=== PATIENT | female | born 1950 | race Caucasian/White ===

== ENCOUNTER 2017-11-20 10:44 | Inpatient (IN) | payer MEDICARE, OTHER ==
[2017-11-20] MEDS ORDERED: ASPIRIN 81 MG TABLET, CHEWABLE PO ONE (10:55)
[2017-11-20] MEDS ORDERED: NORMAL SALINE 1000 ML 1,000 ML IV ONE (10:58)
[2017-11-20] MEDS ORDERED: ONDANSETRON HCL INJ/PF 4 MG/2 ML SDV IV ONE (10:59)
--- NOTE | 2017-11-20 11:05 | ER Document Report ---
ED Medical Screen (RME) - General Chief Complaint: Syncope Stated Complaint: NASUEA Time Seen by Provider: 11/20/17 10:54 TRAVEL OUTSIDE OF THE [place] IN LAST 30 DAYS: No - HPI Notes: 11/20/17 11:03 Patient visiting from [place] has been no color for approximately 2 weeks feeling nauseous since she has been here. Patient patient has syncopal episode or brushing her teeth today. In triage patient was asking to lay down blood pressure is marginal. Patient does look pale - Related Data Allergies/Adverse Reactions: diphenhydramine [From Benadryl] Allergy (Verified 11/20/17 10:46) Past Medical History - Social History Chew tobacco use (# tins/day): No Frequency of alcohol use: None Drug Abuse: None - Past Medical History Cardiac Medical History: Reports: Hx Hypercholesterolemia Renal/ Medical History: Denies: Hx Peritoneal Dialysis Review of Systems - Review of Systems Constitutional: No symptoms reported EENT: No symptoms reported Cardiovascular: Syncope, Other - Nausea Respiratory: No symptoms reported Gastrointestinal: No symptoms reported Genitourinary: No symptoms reported Female Genitourinary: No symptoms reported Musculoskeletal: Back pain Skin: No symptoms reported Hematologic/Lymphatic: No symptoms reported Neurological/Psychological: No symptoms reported Physical Exam - Vital signs Vitals: Temp Pulse Resp BP Pulse Ox 97.9 F 87 24 H 102/52 L 100 11/20/17 10:50 11/20/17 10:50 11/20/17 10:50 11/20/17 10:50 11/20/17 10:50 - Respiratory Respiratory status: No respiratory distress Chest status: Nontender Breath sounds: Normal Chest palpation: Normal Course - Vital Signs Vital signs: Temp Pulse Resp BP Pulse Ox 97.9 F 87 24 H 102/52 L 100 11/20/17 10:50 11/20/17 10:50 11/20/17 10:50 11/20/17 10:50 11/20/17 10:50
--- NOTE | 2017-11-20 11:31 | ER Document Report ---
ED Syncope and Near Syncope - General Chief Complaint: Syncope Stated Complaint: NASUEA Time Seen by Provider: 11/20/17 10:54 Mode of Arrival: Ambulatory Information source: Patient, Relative TRAVEL OUTSIDE OF THE [place] IN LAST 30 DAYS: No - HPI Patient complains to provider of: Fainting Episode witnessed (by whom): Yes Symptoms prior to episode: Abdominal pain, Nausea/vomiting Position/Activity at time of episode: Standing Quality of pain: Achy, Cramping Severity: Moderate Pain Level: 3 Context: Became unresponsive, Collapsed Injury location: None Current symptoms: Dizziness, Headache, Nausea Similar symptoms previously: No Recently seen / treated by doctor: No Notes: Patient is a 67-year-old female presenting to the emergency room today complaining of syncopal episode, patient has been having episodes of nausea over the past week, this morning she did not feel well, she went to the bathroom and her daughter who is at bedside reports she heard a crash, she went into the bathroom and found patient lying on the floor unresponsive, with her head scrunched up against the wall, she did not appear to be having any seizure activity, this episode lasted less than a minute and then patient was awake and alert, she had immediate vomiting and diarrhea which was without blood, patient denies any chest pain or shortness of breath prior to or after the syncopal episode, her only complaint at the present time is a mild headache and nausea been experiencing over the past week, no history of syncope in the past, patient takes cholesterol medication, denies being a smoker - Related Data Allergies/Adverse Reactions: diphenhydramine [From Benadryl] Allergy (Verified 11/20/17 10:46) Past Medical History - General Information source: Patient - Social History Smoking Status: Never Smoker Chew tobacco use (# tins/day): No Frequency of alcohol use: None Drug Abuse: None Family History: Reviewed & Not Pertinent Patient has suicidal ideation: No Patient has homicidal ideation: No - Past Medical History Cardiac Medical History: Reports: Hx Hypercholesterolemia Renal/ Medical History: Denies: Hx Peritoneal Dialysis Review of Systems - Review of Systems Constitutional: See HPI EENT: No symptoms reported Cardiovascular: Syncope, Dizziness Respiratory: No symptoms reported Gastrointestinal: See HPI Genitourinary: No symptoms reported Female Genitourinary: No symptoms reported Musculoskeletal: No symptoms reported Skin: No symptoms reported Hematologic/Lymphatic: No symptoms reported Neurological/Psychological: Headaches -: Yes All other systems reviewed and negative Physical Exam - Vital signs Vitals: Temp Pulse Resp BP Pulse Ox 97.9 F 87 24 H 102/52 L 100 11/20/17 10:50 11/20/17 10:50 11/20/17 10:50 11/20/17 10:50 11/20/17 10:50 Interpretation: Normal - General General appearance: Appears well, Alert - HEENT Head: Normocephalic, Atraumatic Eyes: Normal Pupils: PERRL - Respiratory Respiratory status: No respiratory distress Chest status: Nontender Breath sounds: Normal Chest palpation: Normal - Cardiovascular Rhythm: Regular Heart sounds: Normal auscultation Murmur: No - Abdominal Inspection: Normal Distension: No distension Bowel sounds: Normal Tenderness: Nontender Organomegaly: No organomegaly - Back Back: Normal, Nontender - Extremities General upper extremity: Normal inspection, Nontender, Normal color, Normal ROM , Normal temperature General lower extremity: Normal inspection, Nontender, Normal color, Normal ROM , Normal temperature, Normal weight bearing. No: Tiff's sign - Neurological Neuro grossly intact: Yes Cognition: Normal Orientation: AAOx4 [place] Coma Scale Eye Opening: Spontaneous [place] Coma Scale Verbal: Oriented Annamarie Coma Scale Motor: Obeys Commands [place] Coma Scale Total: 15 Speech: Normal Motor strength normal: LUE, RUE, LLE, RLE Sensory: Normal - Psychological Associated symptoms: Normal affect, Normal mood - Skin Skin Temperature: Warm Skin Moisture: Dry Skin Color: Pale Course - Re-evaluation Re-evalutation: 11/20/17 14:09 Patient discussed with hospitalist [employer] who accepts patient for admission to the [facility] - Vital Signs Vital signs: Temp Pulse Resp BP Pulse Ox 97.9 F 87 24 H 102/52 L 95 11/20/17 10:50 11/20/17 10:50 11/20/17 10:50 11/20/17 10:50 11/20/17 11:16 - Laboratory Result Diagrams: 11/20/17 11:16 11/20/17 11:16 Laboratory results interpreted by me: 11/20/17 11/20/17 11/20/17 11:16 11:16 11:16 WBC 18.1 H RBC 2.26 L Hgb 5.9 L Hct 17.2 L MCV 76 L MCH 26.1 L RDW 17.5 H Absolute Neutrophils 12.6 H Absolute Monocytes 1.9 H PT 16.1 H Glucose 162 H Total Bilirubin 1.8 H Direct Bilirubin 0.6 H AST 43 H Total Protein 10.9 H Albumin 3.3 L Crossmatch 11/20/17 11:16 WBC RBC Hgb Hct MCV MCH RDW Absolute Neutrophils Absolute Monocytes PT Glucose Total Bilirubin Direct Bilirubin AST Total Protein Albumin Crossmatch See Detail - Diagnostic Test Radiology reviewed: Image reviewed, Reports reviewed - EKG Interpretation by Me EKG shows normal: Sinus rhythm Rate: Normal Rhythm: NSR Discharge - Discharge Clinical Impression: Symptomatic anemia Syncope Qualifiers: Syncope type: unspecified Qualified Code(s): R55 - Syncope and collapse Condition: Serious Disposition: ADMITTED INPATIENT Admitting Provider: Hospitalist Unit Admitted: [facility]
[2017-11-20] MEDS ORDERED: ONDANSETRON HCL INJ/PF 4 MG/2 ML SDV ONE (11:33)
[2017-11-20 11:41] LABS: ABSOLUTE BASOPHILS # (AUTO) 0.1 10^3/uL (0.0-0.2); ABSOLUTE EOSINOPHILS # (AUTO) 0.1 10^3/uL (0.0-0.6); ABSOLUTE LYMPHOCYTES (AUTO) 3.3 10^3/uL (0.5-4.7); ABSOLUTE MONOCYTES (AUTO) 1.9 10^3/uL (0.1-1.4); ABSOLUTE NEUT (AUTO) 12.6 10^3/uL (1.7-8.2); BASOPHILS % (AUTO) 0.7 % (0-2); EOSINOPHILS % (AUTO) 0.5 % (0-6); HEMATOCRIT 17.2 % (36.0-47.0); LYMPHOCYTES % (AUTO) 18.3 % (13-45); MEAN CORPUSCULAR HEMOGLOBIN 26.1 pg (27.0-33.4); MEAN CORPUSCULAR HGB CONC 34.3 g/dL (32.0-36.0); MEAN CORPUSCULAR VOLUME 76 fl (80-97); MONOCYTES % (AUTO) 10.8 % (3-13); PLATELET COUNT 207 10^3/uL (150-450); RED BLOOD COUNT 2.26 10^6/uL (3.72-5.28); RED CELL DISTRIBUTION WIDTH 17.5 % (11.5-14.0); SEGMENTED NEUTROPHILS % (AUTO) 69.7 % (42-78); TOTAL CELLS COUNTED % (AUTO) 100 %; WHITE BLOOD COUNT 18.1 10^3/uL (4.0-10.5)
[2017-11-20 11:46] LABS: HEMOGLOBIN 5.9 g/dL (12.0-15.5)
[2017-11-20 11:48] LABS: INTERNATIONAL RATION (INR) 1.23; PROTHROMBIN TIME 16.1 SEC (11.4-15.4)
[2017-11-20 12:03] LABS: ALANINE AMINOTRANSFERASE 31 U/L (9-52); ALBUMIN 3.3 g/dL (3.5-5.0); ALKALINE PHOSPHATASE 120 U/L (38-126); ANION GAP 11 (5-19); ASPARTATE AMINO TRANSFERASE 43 U/L (14-36); BILIRUBIN,DIRECT 0.6 mg/dL (0.0-0.4); BILIRUBIN,TOTAL 1.8 mg/dL (0.2-1.3); BLOOD UREA NITROGEN 12 mg/dL (7-20); CALCIUM 8.7 mg/dL (8.4-10.2); CARBON DIOXIDE 27 mmol/L (22-30); CHLORIDE 101 mmol/L (98-107); CREATINE KINASE 43 U/L (30-135); GLUCOSE 162 mg/dL (75-110); LIPASE 91.1 U/L (23-300); POTASSIUM 3.9 mmol/L (3.6-5.0); SODIUM 139.1 mmol/L (137-145); TOTAL PROTEIN 10.9 g/dL (6.3-8.2)
[2017-11-20] MEDS ORDERED: NORMAL SALINE 250 ML IV PRN (12:04)
--- NOTE | 2017-11-20 12:14 | RADIOLOGY REPORT (SQ) ---
EXAM DESCRIPTION: CHEST SINGLE VIEW COMPLETED DATE/TIME: 11/20/2017 11:57 am REASON FOR STUDY: syncope COMPARISON: None. EXAM PARAMETERS: NUMBER OF VIEWS: One view. TECHNIQUE: Single frontal radiographic view of the chest acquired. RADIATION DOSE: NA LIMITATIONS: None. FINDINGS: LUNGS AND PLEURA: No opacities, masses or pneumothorax. No pleural effusion. MEDIASTINUM AND HILAR STRUCTURES: No masses. Contour normal. HEART AND VASCULAR STRUCTURES: Heart normal in size. Normal vasculature. BONES: No acute findings. HARDWARE: None in the chest. OTHER: No other significant finding. IMPRESSION: NO ACUTE RADIOGRAPHIC FINDING IN THE CHEST. TECHNICAL DOCUMENTATION: JOB ID: [id number] [employer]- All Rights Reserved Reading location - IP/workstation name: [facility] [email or web address] BEDS AT THE [facility]
[2017-11-20 12:15] LABS: CREATINE KINASE MB < 0.22 ng/mL (<4.55); TROPONIN I < 0.012 ng/mL
--- NOTE | 2017-11-20 12:26 | RADIOLOGY REPORT (SQ) ---
EXAM DESCRIPTION: CT HEAD WITHOUT COMPLETED DATE/TIME: 11/20/2017 11:53 am REASON FOR STUDY: syncope COMPARISON: None. TECHNIQUE: Axial images acquired through the brain without intravenous contrast. Images reviewed wi th bone, brain and subdural windows. Additional sagittal and coronal reconstructions were generated. Images stored on PACS. All CT scanners at this facility use dose modulation, iterative reconstruction, and/or weight based d osing when appropriate to reduce radiation dose to as low as reasonably achievable (ALARA). [facility]: Dose Right [facility]: CareDose [facility]: Dose Right [facility]: Teradose 4D [facility]: Cloud9 IDE RADIATION DOSE: mGy. LIMITATIONS: None. FINDINGS: VENTRICLES: Normal size and contour. CEREBRUM: No masses. No hemorrhage. No midline shift. No evidence for acute infarction. Normal gra y/white matter differentiation. No areas of low density in the white matter. CEREBELLUM: No masses. No hemorrhage. No alteration of density. No evidence for acute infarction. EXTRAAXIAL SPACES: No fluid collections. No masses. ORBITS AND GLOBE: No intra- or extraconal masses. Normal contour of globe without masses. CALVARIUM: No fracture. PARANASAL SINUSES: No fluid or mucosal thickening. SOFT TISSUES: No mass or hematoma. OTHER: No other significant finding. IMPRESSION: NORMAL BRAIN CT WITHOUT CONTRAST. EVIDENCE OF ACUTE STROKE: NO. COMMENT: Quality ID # 436: Final reports with documentation of one or more dose reduction techniques (e.g., Automated exposure control, adjustment of the mA and/or kV according to patient size, use of iterative reconstruction technique) TECHNICAL DOCUMENTATION: JOB ID: [id number] [employer]- All Rights Reserved Reading location - IP/workstation name: [email or web address]
--- NOTE | 2017-11-20 13:48 | RADIOLOGY REPORT (SQ) ---
EXAM DESCRIPTION: CT ABD/PELVIS WITH IV ONLY COMPLETED DATE/TIME: 11/20/2017 1:29 pm REASON FOR STUDY: abd pain COMPARISON: None. TECHNIQUE: CT scan of the abdomen and pelvis performed using helical scanning technique with dynamic intravenous contrast injection. No oral contrast. Images reviewed with lung, soft tissue, and bone windows. Reconstructed coronal and sagittal MPR images reviewed. Delayed images for evaluation of the urinary system also acquired. All images stored on PACS. All CT scanners at this facility use dose modulation, iterative reconstruction, and/or weight based d osing when appropriate to reduce radiation dose to as low as reasonably achievable (ALARA). [facility]: Dose Right [facility]: CareDose [facility]: Dose Right [facility]: Teradose 4D [facility]: BioLight [employer] CONTRAST TYPE AND DOSE: 11.15 64 mL Omnipaque 350 RENAL FUNCTION: Creatinine 0.59 RADIATION DOSE: . LIMITATIONS: None. FINDINGS: LOWER CHEST: No significant findings. No nodules or infiltrates. Linear density is identi fied in the lung bases most consistent with atelectatic changes. LIVER: Normal size. No masses. No dilated ducts. SPLEEN: Normal size. No focal lesions. PANCREAS: No masses. No significant calcifications. No adjacent inflammation or peripancreatic fluid collections. Pancreatic duct not dilated. GALLBLADDER: There is increased density which appears to be in the gallbladder neck which could repre sent biliary sludge or tiny gallstones. No inflammatory changes to suggest cholecystitis. ADRENAL GLANDS: No significant masses or asymmetry. RIGHT KIDNEY AND URETER: No solid masses. No significant calcifications. No hydronephrosis or hyd roureter. LEFT KIDNEY AND URETER: No solid masses. No significant calcifications. No hydronephrosis or hydr oureter. AORTA AND VESSELS: No aneurysm. No dissection. Renal arteries, SMA, celiac without stenosis. RETROPERITONEUM: No retroperitoneal adenopathy, hemorrhage or masses. BOWEL AND PERITONEAL CAVITY: No masses or inflammatory changes. No free fluid or peritoneal masses. Scattered colonic diverticulae a are identified in the sigmoid and DC Ing colon without CT evidence f or diverticulitis P APPENDIX: Normal. PELVIS: No mass. No free fluid. Normal bladder. There is enlargement of the uterus with uterine sarai cifications consistent with a fibroid uterus. ABDOMINAL WALL: No masses. No hernias. BONES: No significant or acute findings. OTHER: No other significant finding. IMPRESSION: Increased density in the gallbladder neck which could represent biliary sludge or tiny g allstones. Enlarged fibroid uterus. Multiple colonic diverticula are identified without CT evidence for diverticulitis. Other findings as noted above TECHNICAL DOCUMENTATION: JOB ID: [id number] Quality ID # [id number]: Final reports with documentation of one or more dose reduction techniques (e.g., Au tomated exposure control, adjustment of the mA and/or kV according to patient size, use of iterative reconstruction technique) 2010 [employer]- All Rights Reserved Reading location - IP/workstation name: [email or web address]
[2017-11-20 14:58] LABS: RETICULOCYTE COUNT (AUTO) 6.73 % (0.66-2.85)
[2017-11-20 15:18] LABS: IRON(TIBC) 52.5 ug/dL (37-170)
--- NOTE | 2017-11-20 16:40 | PDOC H&P ---
<SONIA HDEZ Ambrocio - Last Filed: 11/20/17 16:27> History of Present Illness Admission Date/PCP: 11/20/17 14:27 Patient complains of: SYNCOPE. WEAKNESS History of Present Illness: AURORA OROZCO is a 67 year old female who presented to the emergency department following an unwitnessed syncopal episode at home. PMH includes HLD , chronic back pain and sinusitis. The patient experienced a syncopal episode this morning at approximately 10:15 AM. Daughter was in the next room and heard a crash, walked into the bathroom to find patient laying unconscious on the ground. No seizure-like activity. According to daughter, patient was unconscious for approximately 1 minute. When the patient came to, she immediately vomited and experienced 2 episodes of loose stool shortly thereafter. The patient is amnesic to the event, states she was brushing her teeth and 'the next thing I knew, I woke up on the floor with my daughter standing over me.' This episode prompted the daughter to call EMS, and patient was transported to [facility]. Upon arrival to the ED, vital signs were BP 102/52 HR 87 RR 24 T 97.9 SPO2 100% on RA. The patient was awake, alert and oriented 3. Head CT negative. CXR benign. EKG demonstrates NSR, T-wave inversion in V1, no evidence of acute ischemia or infarction. Significant lab work includes leukocytosis (WBC 18.1), anemia (Hgb 5.9/Hct 17.2). Guiac negative (-). All other lab work, including cardiac enzymes, was benign. CT Abd/pelvis demonstrates biliary sludge versus tiny gallstones, enlarged fibroid uterus, multiple colonic diverticula, no other pathology. For her anemia, the patient was transfused 2 units PRBCs. She also received 1L IVF bolus. Upon evaluation, the patient complains of mild nausea and extreme fatigue and weakness. The patient states she has been experiencing these symptoms of fatigue for 'months.' Occupation is retired RN. Denies smoking, ETOH, or illicit drug use. Patient states she is been undergoing a comprehensive workup by her primary care doctor (Dr. Will Mcgee in [place], [place]) but all tests have been normal. In addition to her fatigue, the patient is complaining of lower back pain, which she states is a chronic problem for her. The patient appears very pale, her oral mucosa and sclera are pale. Palpable pulses in upper and lower extremities. No evidence of peripheral edema. S1S1. (+) JVD. Lungs are clear to auscultation. (+) BS. Abdomen is soft, nontender, nondistended. Plan to admit to hospitalist service for syncope and anemia workup. Past Medical History Cardiac Medical History: Reports: Hyperlipidema Pulmonary Medical History: Reports: None EENT Medical History: Reports: None Neurological Medical History: Reports: None Endocrine Medical History: Reports: None Renal/ Medical History: Reports: None Malignancy Medical History: Reports: None GI Medical History: Reports: None Musculoskeltal Medical History: Reports: Other - CHRONIC BACK PAIN Skin Medical History: Reports: None Psychiatric Medical History: Reports: None Traumatic Medical History: Reports: None Hematology: Reports: None Infectious Medical History: Reports: None Past Surgical History Past Surgical History: Reports: Other - TUMMY TUCK 2013; UNKNOWN L EYE SX ~ 40 YRS AGO Social History Information Source: Patient Lives with: Family Smoking Status: Never Smoker Frequency of Alcohol Use: None Hx Recreational Drug Use: No Drugs: None Hx Prescription Drug Abuse: No - Advance Directive Resuscitation Status: Full Code Family History Family History: CAD, CVA, Hyperlipidemia Parental Family History Reviewed: Yes - M - CHF; F - CVA Children Family History Reviewed: NA Sibling(s) Family History Reviewed.: Yes Medication/Allergy Home Medications: Aspirin [Aspirin EC] 81 mg PO DAILY 11/20/17 Diclofenac Sodium [Voltaren-Xr] 100 mg PO DAILYP PRN 11/20/17 Escitalopram Oxalate [Lexapro] 20 mg PO DAILY 11/20/17 Esomeprazole Magnesium [Nexium] 40 mg PO DAILY 11/20/17 Ezetimibe/Simvastatin [Vytorin 10-20 mg Tablet] 1 tab PO DAILY 11/20/17 Allergies/Adverse Reactions: diphenhydramine [From Benadryl] Allergy (Verified 11/20/17 10:46) Review of Systems All systems: reviewed and no additional remarkable complaints except as stated Physical Exam Vital Signs: Temp Pulse Resp BP Pulse Ox 98.6 F 85 20 122/62 100 11/20/17 15:35 11/20/17 15:35 11/20/17 15:35 11/20/17 15:35 11/20/17 15:35 Intake & Output 11/19/17 11/20/17 11/21/17 06:59 06:59 06:59 Intake Total 0 Balance 0 General appearance: PRESENT: no acute distress, well-nourished Head exam: PRESENT: atraumatic Eye exam: PRESENT: conjunctiva pale, PERRLA Mouth exam: PRESENT: moist, other - PALE MUCOSA Neck exam: PRESENT: full ROM. ABSENT: JVD Respiratory exam: PRESENT: clear to auscultation randell, symmetrical, unlabored Cardiovascular exam: PRESENT: RRR, +S1, +S2, systolic murmur - VERY MILD SYSTOLIC MURMUR Pulses: PRESENT: normal radial pulses, normal dorsalis pedis pul Vascular exam: PRESENT: pallor GI/Abdominal exam: PRESENT: normal bowel sounds, soft. ABSENT: tenderness Rectal exam: PRESENT: deferred Extremities exam: PRESENT: full ROM. ABSENT: pedal edema Musculoskeletal exam: PRESENT: ambulatory, full ROM Neurological exam: PRESENT: alert, awake, oriented to person, oriented to place , oriented to time, oriented to situation Psychiatric exam: PRESENT: appropriate affect Skin exam: PRESENT: dry, intact, pallor, warm Results Impressions: Chest X-Ray 11/20/17 10:55 IMPRESSION: NO ACUTE RADIOGRAPHIC FINDING IN THE CHEST. Head CT 11/20/17 10:58 IMPRESSION: NORMAL BRAIN CT WITHOUT CONTRAST. EVIDENCE OF ACUTE STROKE: NO. Abdomen/Pelvis CT 11/20/17 12:18 IMPRESSION: Increased density in the gallbladder neck which could represent biliary sludge or tiny gallstones. Enlarged fibroid uterus. Multiple colonic diverticula are identified without CT evidence for diverticulitis. Other findings as noted above Status: Imported from PACS Assessment & Plan - Diagnosis (2) Symptomatic anemia Is this a current diagnosis for this admission?: Yes Plan: Unclear etiology of anemia - patient denies hematological history but endorses ' months of feeling tired and weak' Was previously taking Iron supplements but stopped because of GI upset Stool guiac negative (-) CT Abd/pelvis demonstrates biliary sludge versus tiny gallstones, enlarged fibroid uterus, multiple colonic diverticula, no other pathology Initial Hgb 5.8 - transfuse 2U PRBC q6h CBC until stabilized Anemia studies pending: Iron, TIBC, Ferratin, Folate, LDH, haptoglobin, B12 Based on lab findings, may consider hematology consult (3) Syncope QualifierTitle: Syncope type: unspecified Qualified Code(s): R55 - Syncope and collapse Is this a current diagnosis for this admission?: Yes Plan: Unwitnessed syncopal episode today. (+) LOC and head trauma Could be secondary to significant anemia (Hgb 5.8) Head CT negative Received 1L IVF in ED Transfused 2U PRBC Plan for echocardiogram to rule out cardiac etiology Anemia studies pending Consider carotid dopplers if all other studies negative (4) Chronic back pain QualifierTitle: Back pain location: low back pain Sciatica presence: with sciatica Is this a current diagnosis for this admission?: Yes Plan: Patient endorses history of chronic lower back pain Patient currently taking Voltaren (NSAID) as needed Initiate PRN Tylenol, flexeril, tramadol and/or daily lidocaine patch for pain (5) HLD (hyperlipidemia) Is this a current diagnosis for this admission?: Yes Plan: Patient endorses history of hyperlipidemia Will resume home medications Lipid panel with a.m. labs - Time Time Spent: 30 to 50 Minutes Critical Time spent with patient: Less than 15 minutes Medications reviewed and adjusted accordingly: Yes Anticipated discharge: Home - Inpatient Certification Based on my medical assessment, after consideration of the patient's comorbidities, presenting symptoms, or acuity I expect that the services needed warrant INPATIENT care.: Yes I certify that my determination is in accordance with my understanding of Medicare's requirements for reasonable and necessary INPATIENT services [42 CFR 412.3e].: Yes Medical Necessity: Risk of Complication if Not Cared For in Hospital - Plan Summary Plan Summary: ANEMIA STUDIES. ECHOCARDIOGRAM. Q6H CBC. BASED ON RESULTS, CONSIDER HEMATOLOGY AND/OR CARDIOLOGY CONSULT. <NICOLAS INTERIANO M - Last Filed: 12/02/17 15:39> History of Present Illness Admission Date/PCP: 11/20/17 14:27 History of Present Illness: AURORA OROZCO is a 67 year old female Physical Exam Vital Signs: Temp Pulse Resp BP Pulse Ox 98.1 F 84 20 122/64 99 11/24/17 10:37 11/24/17 10:37 11/24/17 10:37 11/24/17 10:37 11/24/17 10:22 Results Laboratory Results: 11/24/17 04:28 11/24/17 04:28 11/20/17 11/20/17 11/20/17 17:15 17:15 17:15 Creatine Kinase 40 CK-MB (CK-2) < 0.22 Troponin I < 0.012 NT-Pro-B Natriuret Pep 311 11/20/17 11/20/17 11/21/17 22:05 22:05 04:21 Creatine Kinase 38 48 CK-MB (CK-2) < 0.22 Troponin I < 0.012 NT-Pro-B Natriuret Pep 11/21/17 11/21/17 04:21 04:21 Creatine Kinase CK-MB (CK-2) < 0.22 Troponin I < 0.012 NT-Pro-B Natriuret Pep 832 Impressions: Chest X-Ray 11/20/17 10:55 IMPRESSION: NO ACUTE RADIOGRAPHIC FINDING IN THE CHEST. Head CT 11/20/17 10:58 IMPRESSION: NORMAL BRAIN CT WITHOUT CONTRAST. EVIDENCE OF ACUTE STROKE: NO. Abdomen/Pelvis CT 11/20/17 12:18 IMPRESSION: Increased density in the gallbladder neck which could represent biliary sludge or tiny gallstones. Enlarged fibroid uterus. Multiple colonic diverticula are identified without CT evidence for diverticulitis. Other findings as noted above Provider Note Provider Note: I have discussed this patient with MAU Hdez in detail. I am in agreement with her evaluation and plan.
[2017-11-20 18:00] LABS: APPEARANCE,URINE CLEAR; BILIRUBIN,URINE NEGATIVE (NEGATIVE); COLOR,URINE YELLOW; GLUCOSE, URINE NEGATIVE (NEGATIVE); KETONES,URINE NEGATIVE (NEGATIVE); LEUKOCYTE ESTERASE,URINE NEGATIVE (NEGATIVE); NITRITE,URINE NEGATIVE (NEGATIVE); PROTEIN,URINE NEGATIVE (NEGATIVE); URINE SPECIFIC GRAVITY 1.049
[2017-11-20 18:15] LABS: CREATINE KINASE MB < 0.22 ng/mL (<4.55); TROPONIN I < 0.012 ng/mL
--- NOTE | 2017-11-20 20:14 | XCELERA REPORT ---
[address] [address] Transthoracic Echocardiogram Report Name: AURORA OROZCO Age: 67 yrs Gender: Female : 1950 Patient Status: Inpatient Patient Location: [place] [address]^A Study Date: 11/20/2017 03:09 PM Height: 67 in Weight: 130 lb BSA: 1.7 m2 Procedure: A two-dimensional transthoracic echocardiogram with color flow Doppler was performed. The study was technically difficult with many images being suboptimal in quality. Reason For Study: SYNCOPE History: SYNCOPE. Ordering Physician: SONIA HDEZ Performed By: Tatyana Pedro Interpretation Summary The left ventricle is normal in size. There is normal left ventricular wall thickness. LV EF is 65% Left ventricular systolic function is normal. Doppler measurements suggest impaired left ventricular relaxation, which is associated with grade I/IV or mild diastolic dysfunction The left ventricular wall motion is normal. There is no thrombus. The right ventricle is grossly normal size. The right ventricle is not well visualized secondary to technical limitations The right atrium is normal. The left atrial size is normal. There is no evidence of mitral valve prolapse. There is no vegetation seen on the mitral valve. There is no mitral valve stenosis. There is a mild amount of mitral regurgitation There is no aortic valvular vegetation. There is mild aortic stenosis There is a peak gradient of 16 mm of Hg. No aortic regurgitation is present. There is no tricuspid stenosis. There is a mild amount of tricuspid regurgitation RSVP is equal to 40 to 45 mm of Hg , with RA mean of 5 to 10. There is no pulmonic valvular stenosis. There is a mild amount of pulmonic regurgitation There is no pericardial effusion. MMode/2D Measurements & Calculations RVDd: 3.0 cm LVIDd: 4.9 cm FS: 36.0 % Ao root diam: 2.6 cm IVSd: 0.86 cm LVIDs: 3.1 cm EDV(Teich): 112.8 ml Ao root area: 5.2 cm2 LVPWd: 0.80 cm ESV(Teich): 38.9 ml LA dimension: 3.3 cm EF(Teich): 65.5 % Doppler Measurements & Calculations MV E max fer: MV P1/2t max fer: Ao V2 max: LV V1 max P.0 cm/sec 123.4 cm/sec 195.5 cm/sec 4.5 mmHg MV A max fer: MV P1/2t: 51.3 msec Ao max PG: LV V1 max: 117.2 cm/sec MVA(P1/2t): 4.3 cm2 15.3 mmHg 106.4 cm/sec MV E/A: 0.86 MV dec slope: 704.9 cm/sec2 MV dec time: 0.20 sec PA V2 max: PI end-d fer: TR max fer: MV P1/2t-pr_phl: 149.3 cm/sec 116.7 cm/sec 295.7 cm/sec 51.3 msec PA max P.9 mmHg TR max P.0 mmHg Left Ventricle The left ventricle is normal in size. There is normal left ventricular wall thickness. LV EF is 65%. Left ventricular systolic function is normal. Doppler measurements suggest impaired left ventricular relaxation, which is associated with grade I/IV or mild diastolic dysfunction. The left ventricular wall motion is normal. There is no thrombus. There is no ventricular septal defect visualized. Right Ventricle The right ventricle is grossly normal size. The right ventricle is not well visualized secondary to technical limitations. Atria The right atrium is normal. The left atrial size is normal. The interatrial septum is intact with no evidence for an atrial septal defect. Mitral Valve There is no evidence of mitral valve prolapse. There is no vegetation seen on the mitral valve. There is no mitral valve stenosis. There is a mild amount of mitral regurgitation. Aortic Valve There is no aortic valvular vegetation. There is mild aortic stenosis. There is a peak gradient of 16 mm of Hg. No aortic regurgitation is present. Tricuspid Valve There is no tricuspid stenosis. There is a mild amount of tricuspid regurgitation. RSVP is equal to 40 to 45 mm of Hg , with RA mean of 5 to 10. Pulmonic Valve There is no pulmonic valvular stenosis. There is a mild amount of pulmonic regurgitation. Great Vessels The aortic root is normal size. Effusions There is no pericardial effusion. : SONIA HDEZ > Sanjana Campos
[2017-11-20 22:22] LABS: ABSOLUTE BASOPHILS # (AUTO) 0.1 10^3/uL (0.0-0.2); ABSOLUTE LYMPHOCYTES (AUTO) 2.4 10^3/uL (0.5-4.7); ABSOLUTE MONOCYTES (AUTO) 1.1 10^3/uL (0.1-1.4); ABSOLUTE NEUT (AUTO) 7.1 10^3/uL (1.7-8.2); BASOPHILS % (AUTO) 0.6 % (0-2); EOSINOPHILS % (AUTO) 0.3 % (0-6); HEMATOCRIT 20.7 % (36.0-47.0); LYMPHOCYTES % (AUTO) 22.8 % (13-45); MEAN CORPUSCULAR HGB CONC 34.6 g/dL (32.0-36.0); MONOCYTES % (AUTO) 10.6 % (3-13); PLATELET COUNT 170 10^3/uL (150-450); RED BLOOD COUNT 2.56 10^6/uL (3.72-5.28); RED CELL DISTRIBUTION WIDTH 21.1 % (11.5-14.0); SEGMENTED NEUTROPHILS % (AUTO) 65.7 % (42-78); TOTAL CELLS COUNTED % (AUTO) 100 %; WHITE BLOOD COUNT 10.7 10^3/uL (4.0-10.5)
[2017-11-20 22:24] LABS: MEAN CORPUSCULAR VOLUME 81 fl (80-97)
[2017-11-20 22:26] LABS: HEMOGLOBIN 7.2 g/dL (12.0-15.5)
[2017-11-20 22:56] LABS: CREATINE KINASE MB < 0.22 ng/mL (<4.55); TROPONIN I < 0.012 ng/mL
[2017-11-20] MEDS ORDERED: DICLOFENAC SODIUM 50 MG TABLET.DR PO PRN (23:01)
[2017-11-20] MEDS ORDERED: LANSOPRAZOLE 30 MG TAB.RAP.DR PO ONE (23:05)
[2017-11-20] MEDS ORDERED: ESCITALOPRAM OXALATE 10 MG TABLET PO ONE (23:15)
[2017-11-21 05:40] LABS: HEMATOCRIT 16.7 % (36.0-47.0); MEAN CORPUSCULAR HEMOGLOBIN 28.6 pg (27.0-33.4); MEAN CORPUSCULAR VOLUME 80 fl (80-97); PLATELET COUNT 166 10^3/uL (150-450); RED CELL DISTRIBUTION WIDTH 21.2 % (11.5-14.0); WHITE BLOOD COUNT 11.9 10^3/uL (4.0-10.5)
[2017-11-21 05:45] LABS: ALANINE AMINOTRANSFERASE 26 U/L (9-52); ALBUMIN 2.9 g/dL (3.5-5.0); ALKALINE PHOSPHATASE 97 U/L (38-126); ANION GAP 10 (5-19); ASPARTATE AMINO TRANSFERASE 47 U/L (14-36); BILIRUBIN,DIRECT 0.6 mg/dL (0.0-0.4); BILIRUBIN,TOTAL 1.9 mg/dL (0.2-1.3); BLOOD UREA NITROGEN 11 mg/dL (7-20); CALCIUM 8.1 mg/dL (8.4-10.2); CARBON DIOXIDE 25 mmol/L (22-30); CHLORIDE 104 mmol/L (98-107); CHOLESTEROL 77.42 mg/dL (0-200); GLUCOSE 114 mg/dL (75-110); POTASSIUM 3.7 mmol/L (3.6-5.0); SODIUM 139.3 mmol/L (137-145); TOTAL PROTEIN 9.8 g/dL (6.3-8.2); TRIGLYCERIDES 130 mg/dL (<150)
[2017-11-21 05:53] LABS: CREATINE KINASE MB < 0.22 ng/mL (<4.55); TROPONIN I < 0.012 ng/mL
[2017-11-21 05:56] LABS: DIRECT LDL 33 mg/dL (<100)
[2017-11-21] MEDS: ONDANSETRON 4 MG TAB.RAPDIS PO PRN (05:58)
[2017-11-21 06:17] LABS: ABSOLUTE LYMPHOCYTES# (MANUAL) 2.7 10^3/uL (0.5-4.7); ABSOLUTE MONOCYTES # (MANUAL) 1.2 10^3/uL (0.1-1.4); ABSOLUTE NEUTROPHILS# (MANUAL) 7.9 10^3/uL (1.7-8.2); ANISOCYTOSIS 3+; BASOPHILS % (MANUAL) 0 % (0-2); EOSINOPHILS % (MANUAL) 1 % (0-6); LYMPHOCYTES % (MANUAL) 23 % (13-45); MONOCYTES % (MANUAL) 10 % (3-13); SEGMENTED NEUTROPHILS % (MAN) 66 % (42-78); TOTAL CELLS COUNTED 100; TOXIC GRANULATION SLIGHT
[2017-11-21 06:18] LABS: PLATELET COMMENT ADEQUATE; PLATELET LARGE PRESENT
[2017-11-21] MEDS ORDERED: NORMAL SALINE 250 ML IV PRN ×2 (08:10)
--- NOTE | 2017-11-21 08:56 | EKG REPORT ---
SEVERITY:- NORMAL ECG - SINUS RHYTHM : Confirmed by: Milan Castorena 21-Nov-2017 08:56:09
[2017-11-21] MEDS: METHYLPREDNISOLONE INJ 40 MG/1 ML SDV IV SCH ×2 (09:42→17:13)
[2017-11-21 10:16] LABS: PATH REVIEW PATHOLOGIST REVIEWED; ROULEAUX 3+
[2017-11-21] MEDS: CYCLOBENZAPRINE HCL 10 MG TABLET PO PRN (11:13)
[2017-11-21] MEDS: LIDOCAINE 5% (700 MG) TRANSDERMAL ADH..PATCH TP SCH (11:13)
[2017-11-21] MEDS: LANSOPRAZOLE 30 MG TAB.RAP.DR PO SCH ×2 (11:13→17:13)
[2017-11-21] MEDS: NORMAL SALINE 1000 ML 1,000 ML IV PRN (11:15)
--- NOTE | 2017-11-21 12:26 | PDOC CONSULTATION ---
Consultation Consult Date: 11/21/17 Consult reason:: Hematology/Oncology consultation was requested for patient with acute anemia. History of Present Illness Admission Date/PCP: 11/20/17 14:27 History of Present Illness: AURORA OROZCO is a 67 year old female who lives in [facility]. She was visiting her daughter when she had a syncopal episode and was brought to the ED. She states that over the past few weeks, she has had progressive fatigue. She just felt drained with shortness of breath. She follows regularly with her physicians in [place] and last labs in May were reportedly normal. She denies any history of anemia in the past. A few nights ago, she felt feverish, but did not take her temp. No other symptoms of infection. Yesterday, she went to the bathroom, passed out, and does not remember anything until her duaghter helped her to the couch. After she passed out, she immediately vomited and then had diarrhea. On arrival to the ED she was found to have a HGB of 6. She was transfused 2 units or pRBCs. Past Medical History Cardiac Medical History: Reports: Hyperlipidema Pulmonary Medical History: Reports: None EENT Medical History: Reports: None Neurological Medical History: Reports: None Endocrine Medical History: Reports: None Renal/ Medical History: Reports: Other - Right ovarian cyst Malignancy Medical History: Reports: None GI Medical History: Reports: Gastroesophageal Reflux Disease Musculoskeltal Medical History: Reports: Other - CHRONIC BACK PAIN Skin Medical History: Reports: None Psychiatric Medical History: Reports: None Denies: Depression Traumatic Medical History: Reports: None Hematology: Reports: None Infectious Medical History: Reports: None Past Surgical History Past Surgical History: Reports: Other - ALIZE VIVAS 2013; UNKNOWN L EYE SX ~ 40 YRS AGO Social History Occupation: She is a retired RN. She is . 3 Children, 7 grandchildren, 3 GGKs. No pets. Lives with: Family Smoking Status: Never Smoker Frequency of Alcohol Use: None Hx Recreational Drug Use: No Drugs: None Hx Prescription Drug Abuse: No - Advance Directive Resuscitation Status: Full Code Family History Parental Family History Reviewed: Yes - Father age 70 CVA EtOH. Mother CHF age 78 Children Family History Reviewed: Yes Sibling(s) Family History Reviewed.: Yes - Sister EtOH and DM. Another sister age 36 unknown cause Medication/Allergy Home Medications: Aspirin [Aspirin EC] 81 mg PO DAILY 11/20/17 Diclofenac Sodium [Voltaren-Xr] 100 mg PO DAILYP PRN 11/20/17 Escitalopram Oxalate [Lexapro] 20 mg PO DAILY 11/20/17 Esomeprazole Magnesium [Nexium] 40 mg PO DAILY 11/20/17 Ezetimibe/Simvastatin [Vytorin 10-20 mg Tablet] 1 tab PO DAILY 11/20/17 Allergies/Adverse Reactions: diphenhydramine [From Benadryl] Allergy (Verified 11/20/17 10:46) Review of Systems Constitutional: PRESENT: fever(s), headache(s) Eyes: ABSENT: visual disturbances Ears: ABSENT: hearing changes Nose, Mouth, and Throat: ABSENT: sore throat Cardiovascular: ABSENT: chest pain Respiratory: PRESENT: dyspnea Gastrointestinal: PRESENT: diarrhea, heartburn, nausea, vomiting Genitourinary: ABSENT: dysuria Integumentary: ABSENT: pruritus, rash Neurological: PRESENT: other - as per HPI Hematologic/Lymphatic: ABSENT: easy bruising, lymphadenopathy Physical Exam Vital Signs: Temp Pulse Resp BP Pulse Ox 98.7 F 85 22 H 120/62 99 11/21/17 11:33 11/21/17 11:33 11/21/17 11:33 11/21/17 11:33 11/21/17 11:33 Intake & Output 11/20/17 11/21/17 11/22/17 06:59 06:59 06:59 Intake Total 300 237 Output Total 600 Balance -300 237 Weight 63.4 kg General appearance: PRESENT: no acute distress, thin Exam: 67 year old female. Head exam: PRESENT: normocephalic Eye exam: PRESENT: PERRLA Ear exam: PRESENT: normal external ear exam Mouth exam: PRESENT: moist, tongue midline Neck exam: ABSENT: lymphadenopathy, tenderness Respiratory exam: PRESENT: clear to auscultation randell, unlabored Cardiovascular exam: PRESENT: RRR. ABSENT: systolic murmur Pulses: PRESENT: normal dorsalis pedis pul GI/Abdominal exam: PRESENT: soft. ABSENT: organolmegaly, tenderness Extremities exam: ABSENT: pedal edema Neurological exam: PRESENT: alert, awake, oriented to person, oriented to place , oriented to time, oriented to situation Psychiatric exam: PRESENT: appropriate affect Skin exam: PRESENT: jaundice, pallor Results Laboratory Results: 11/21/17 04:21 11/21/17 04:21 11/20/17 11/20/17 11/21/17 17:15 22:05 04:21 WBC 10.7 H RBC 2.56 L Hgb 7.2 L Hct 20.7 L MCV 81 D MCH 28.0 MCHC 34.6 RDW 21.1 H Plt Count 170 Seg Neutrophils % 65.7 Lymphocytes % 22.8 Monocytes % 10.6 Eosinophils % 0.3 Basophils % 0.6 Absolute Neutrophils 7.1 Absolute Lymphocytes 2.4 Absolute Monocytes 1.1 Absolute Eosinophils 0.0 Absolute Basophils 0.1 Sodium 139.3 Potassium 3.7 Chloride 104 Carbon Dioxide 25 Anion Gap 10 BUN 11 Creatinine 0.52 Est GFR ( Amer) > 60 Est GFR (Non-Af Amer) > 60 Glucose 114 H Calcium 8.1 L Total Bilirubin 1.9 H AST 47 H ALT 26 Alkaline Phosphatase 97 Total Protein 9.8 H Albumin 2.9 L Triglycerides 130 Cholesterol 77.42 LDL Cholesterol Direct 33 VLDL Cholesterol 26.0 HDL Cholesterol 12 L TSH Urine Color YELLOW Urine Appearance CLEAR Urine pH 7.0 Ur Specific [place] 1.049 Urine Protein NEGATIVE Urine Glucose (UA) NEGATIVE Urine Ketones NEGATIVE Urine Blood NEGATIVE Urine Nitrite NEGATIVE Ur Leukocyte Esterase NEGATIVE Urine WBC (Auto) 1 Urine RBC (Auto) 2 11/21/17 11/21/17 04:21 04:21 WBC 11.9 H RBC 2.10 L Hgb 6.0 L Hct 16.7 L MCV 80 MCH 28.6 MCHC 36.0 RDW 21.2 H Plt Count 166 Seg Neutrophils % Not Reportable Lymphocytes % Not Reportable Monocytes % Not Reportable Eosinophils % Not Reportable Basophils % Not Reportable Absolute Neutrophils Not Reportable Absolute Lymphocytes Not Reportable Absolute Monocytes Not Reportable Absolute Eosinophils Not Reportable Absolute Basophils Not Reportable Sodium Potassium Chloride Carbon Dioxide Anion Gap BUN Creatinine Est GFR ( Amer) Est GFR (Non-Af Amer) Glucose Calcium Total Bilirubin AST ALT Alkaline Phosphatase Total Protein Albumin Triglycerides Cholesterol LDL Cholesterol Direct VLDL Cholesterol HDL Cholesterol TSH 2.16 Urine Color Urine Appearance Urine pH Ur Specific [place] Urine Protein Urine Glucose (UA) Urine Ketones Urine Blood Urine Nitrite Ur Leukocyte Esterase Urine WBC (Auto) Urine RBC (Auto) 11/20/17 11/20/17 11/20/17 17:15 17:15 17:15 Creatine Kinase 40 CK-MB (CK-2) < 0.22 Troponin I < 0.012 NT-Pro-B Natriuret Pep 311 11/20/17 11/20/17 11/21/17 22:05 22:05 04:21 Creatine Kinase 38 48 CK-MB (CK-2) < 0.22 Troponin I < 0.012 NT-Pro-B Natriuret Pep 11/21/17 11/21/17 04:21 04:21 Creatine Kinase CK-MB (CK-2) < 0.22 Troponin I < 0.012 NT-Pro-B Natriuret Pep 832 Impressions: Chest X-Ray 11/20/17 10:55 IMPRESSION: NO ACUTE RADIOGRAPHIC FINDING IN THE CHEST. Head CT 11/20/17 10:58 IMPRESSION: NORMAL BRAIN CT WITHOUT CONTRAST. EVIDENCE OF ACUTE STROKE: NO. Abdomen/Pelvis CT 11/20/17 12:18 IMPRESSION: Increased density in the gallbladder neck which could represent biliary sludge or tiny gallstones. Enlarged fibroid uterus. Multiple colonic diverticula are identified without CT evidence for diverticulitis. Other findings as noted above Assessment & Plan - Diagnosis (1) Symptomatic anemia Is this a current diagnosis for this admission?: Yes Plan: Based on history and labs thus far, this appears to be a hemolytic anemia. Her LDH and Retic are high. No blood in stool. No change after transfusion. I have ordered Miko testing. Hold further blood transfusions for now. Steroids have been started. Consider IVIg as well. I will repeat CBC at 4pm today. May transfuse if any evidence of hemodynamic instability. (2) Syncope Qualifiers: Syncope type: unspecified Qualified Code(s): R55 - Syncope and collapse Is this a current diagnosis for this admission?: Yes Plan: Most likely due to hypotension from anemia. Symptoms are consistent with a vaso -vagal response. - Plan Summary Plan Summary: I have explained to the patient and daughter that I am unsure what has triggered the hemolysis, but it is usually an heightened immune response. There is currently no evidence of infection. Will monitor closely. I will continue to follow her and am available by phone at any time.
[2017-11-21] MEDS: ACETAMINOPHEN 325 MG TABLET PO PRN (17:13)
[2017-11-21 17:19] LABS: ABSOLUTE BASOPHILS # (AUTO) 0.1 10^3/uL (0.0-0.2); ABSOLUTE LYMPHOCYTES (AUTO) 1.8 10^3/uL (0.5-4.7); ABSOLUTE MONOCYTES (AUTO) 0.7 10^3/uL (0.1-1.4); ABSOLUTE NEUT (AUTO) 7.9 10^3/uL (1.7-8.2); BASOPHILS % (AUTO) 0.8 % (0-2); HEMATOCRIT 19.3 % (36.0-47.0); LYMPHOCYTES % (AUTO) 17.5 % (13-45); MEAN CORPUSCULAR HGB CONC 34.8 g/dL (32.0-36.0); MEAN CORPUSCULAR VOLUME 81 fl (80-97); MONOCYTES % (AUTO) 6.6 % (3-13); PLATELET COUNT 183 10^3/uL (150-450); RED CELL DISTRIBUTION WIDTH 21.2 % (11.5-14.0); SEGMENTED NEUTROPHILS % (AUTO) 75.1 % (42-78); TOTAL CELLS COUNTED % (AUTO) 100 %; WHITE BLOOD COUNT 10.5 10^3/uL (4.0-10.5)
[2017-11-21 17:25] LABS: HEMOGLOBIN 6.7 g/dL (12.0-15.5)
[2017-11-21] MEDS: ESCITALOPRAM OXALATE 10 MG TABLET PO SCH (21:43)
[2017-11-21] MEDS ORDERED: LANSOPRAZOLE 30 MG TAB.RAP.DR PO SCH (22:00)
--- NOTE | 2017-11-22 00:31 | PDOC PROGRESS REPORT ---
<KETTYSONIA Ambrocio - Last Filed: 11/22/17 00:16> Subjective Progress Note for:: 11/21/17 Subjective:: AURORA OROZCO is a 67 year old female with a PMH includes HLD, chronic back pain and sinusitis, admitted to [facility] for symptomatic anemia. The patient was seen this morning on rounds, she still complains of persistent fatigue and weakness. She endorses lower back pain, stating she believes she "landed on her tailbone" when she experienced her syncopal episode yesterday. The patient states she is still experiencing loose stools - denies watery diarrhea, abdominal pain, recent exposure to antibiotics. Plan for maintenance IVF and stool cultures. Low suspicion for c.diff. The patient was offered tylenol, muscle relaxers and lidocaine patches for her lower back pain. She was instructed not to take her home medications. Following laboratory review, it appears that the patient has developed hemolytic anemia and this is likely the source of her symptoms - LDH and reticulocyte count are elevated, haptoglobin currently pending. The patient's lab work from May 2017 was also reviewed, and CBC, ferretin, LDH, B12 were all normal at that time. Hematology was consulted. Suggested Solumedrol 60mg q6hrs IV. Continue to trend CBC and only transfuse if patient becomes hemodynamically unstable. Avoid NSAIDS. Patient should not take home dose Voltaren. Monitor for signs and symptoms of bleeding. Reason For Visit: SYNCOPE,ANEMIA Physical Exam Vital Signs: Temp Pulse Resp BP Pulse Ox 97.8 F 72 20 112/53 L 96 11/21/17 20:05 11/21/17 20:05 11/21/17 20:05 11/21/17 20:05 11/21/17 20:05 Intake & Output 11/20/17 11/21/17 11/22/17 06:59 06:59 06:59 Intake Total 300 474 Output Total 600 Balance -300 474 Weight 63.4 kg General appearance: PRESENT: no acute distress, well-developed Head exam: PRESENT: atraumatic Eye exam: PRESENT: conjunctiva pale, PERRLA Mouth exam: PRESENT: moist Neck exam: PRESENT: full ROM, JVD Respiratory exam: PRESENT: clear to auscultation randell, symmetrical, unlabored Cardiovascular exam: PRESENT: RRR, +S1, +S2, systolic murmur Pulses: PRESENT: normal radial pulses, normal dorsalis pedis pul GI/Abdominal exam: PRESENT: normal bowel sounds, soft. ABSENT: tenderness Rectal exam: PRESENT: deferred Extremities exam: PRESENT: full ROM Musculoskeletal exam: PRESENT: ambulatory, full ROM Neurological exam: PRESENT: alert, awake, oriented to person, oriented to place , oriented to time, oriented to situation Psychiatric exam: PRESENT: appropriate affect Skin exam: PRESENT: dry, intact, pallor, warm Results Laboratory Results: 11/21/17 17:00 11/21/17 04:21 11/21/17 11/21/17 11/21/17 04:21 04:21 04:21 WBC 11.9 H RBC 2.10 L Hgb 6.0 L Hct 16.7 L MCV 80 MCH 28.6 MCHC 36.0 RDW 21.2 H Plt Count 166 Seg Neutrophils % Not Reportable Lymphocytes % Not Reportable Monocytes % Not Reportable Eosinophils % Not Reportable Basophils % Not Reportable Absolute Neutrophils Not Reportable Absolute Lymphocytes Not Reportable Absolute Monocytes Not Reportable Absolute Eosinophils Not Reportable Absolute Basophils Not Reportable Sodium 139.3 Potassium 3.7 Chloride 104 Carbon Dioxide 25 Anion Gap 10 BUN 11 Creatinine 0.52 Est GFR ( Amer) > 60 Est GFR (Non-Af Amer) > 60 Glucose 114 H Calcium 8.1 L Total Bilirubin 1.9 H AST 47 H ALT 26 Alkaline Phosphatase 97 Total Protein 9.8 H Albumin 2.9 L Triglycerides 130 Cholesterol 77.42 LDL Cholesterol Direct 33 VLDL Cholesterol 26.0 HDL Cholesterol 12 L TSH 2.16 Antibody Screen 11/21/17 11/21/17 09:47 17:00 WBC 10.5 RBC 2.40 L Hgb 6.7 L Hct 19.3 L MCV 81 MCH 28.0 MCHC 34.8 RDW 21.2 H Plt Count 183 Seg Neutrophils % 75.1 Lymphocytes % 17.5 Monocytes % 6.6 Eosinophils % 0.0 Basophils % 0.8 Absolute Neutrophils 7.9 Absolute Lymphocytes 1.8 Absolute Monocytes 0.7 Absolute Eosinophils 0.0 Absolute Basophils 0.1 Sodium Potassium Chloride Carbon Dioxide Anion Gap BUN Creatinine Est GFR ( Amer) Est GFR (Non-Af Amer) Glucose Calcium Total Bilirubin AST ALT Alkaline Phosphatase Total Protein Albumin Triglycerides Cholesterol LDL Cholesterol Direct VLDL Cholesterol HDL Cholesterol TSH Antibody Screen TNP 08/11/20/17 11/20/17 17:15 17:15 17:15 Creatine Kinase 40 CK-MB (CK-2) < 0.22 Troponin I < 0.012 NT-Pro-B Natriuret Pep 311 11/20/17 11/20/17 11/21/17 22:05 22:05 04:21 Creatine Kinase 38 48 CK-MB (CK-2) < 0.22 Troponin I < 0.012 NT-Pro-B Natriuret Pep 11/21/17 11/21/17 04:21 04:21 Creatine Kinase CK-MB (CK-2) < 0.22 Troponin I < 0.012 NT-Pro-B Natriuret Pep 832 Impressions: Chest X-Ray 11/20/17 10:55 IMPRESSION: NO ACUTE RADIOGRAPHIC FINDING IN THE CHEST. Head CT 11/20/17 10:58 IMPRESSION: NORMAL BRAIN CT WITHOUT CONTRAST. EVIDENCE OF ACUTE STROKE: NO. Abdomen/Pelvis CT 11/20/17 12:18 IMPRESSION: Increased density in the gallbladder neck which could represent biliary sludge or tiny gallstones. Enlarged fibroid uterus. Multiple colonic diverticula are identified without CT evidence for diverticulitis. Other findings as noted above Status: Imported from PACS Assessment & Plan - Diagnosis (1) Hemolytic anemia Is this a current diagnosis for this admission?: Yes Plan: Based on lab work, patient's symptoms are likely related to hemolytic anemia Unclear etiology at this time - drug induced vs. autoimmune process Hematology consulted, appreciate their recommendations Solumedrol 60mg q6hr IV Continue to monitor daily CBCs No need for transfusion at this time, despite Hgb < 7.0 - if patient becomes unstable plan to transfuse (2) Symptomatic anemia Is this a current diagnosis for this admission?: Yes Plan: Etiology appears to be hemolytic anemia Patient denies hematological history but endorses 'months of feeling tired and weak' Lab work from PMD in May 2017 is normal Stool guiac negative (-) CT Abd/pelvis demonstrates biliary sludge versus tiny gallstones, enlarged fibroid uterus, multiple colonic diverticula, no other pathology Initial Hgb 5.8 - transfuse 2U PRBC in ED Anemia studies completed: elevated LDH and reticulocyte count Hematology consulted, appreciate their recommendations (3) Syncope QualifierTitle: Syncope type: unspecified Qualified Code(s): R55 - Syncope and collapse Is this a current diagnosis for this admission?: Yes Plan: Unwitnessed syncopal episode. (+) LOC and head trauma Could be secondary to hypotension stemming from significant anemia (Hgb 5.8) Head CT negative Received 1L IVF in ED Transfused 2U PRBC in ED Echocardiogram completed - LVEF 65%, no significant abnormalities Anemia studies completed, see above No plan for carotid dopplers at this time (4) Chronic back pain QualifierTitle: Back pain location: low back pain Sciatica presence: with sciatica Is this a current diagnosis for this admission?: Yes Plan: Patient endorses history of chronic lower back pain Patient taking Voltaren (NSAID) as needed - DO NOT plan to continue this considering anemia diagnosis PRN Tylenol, flexeril, and lidocaine patch for pain (5) HLD (hyperlipidemia) Is this a current diagnosis for this admission?: Yes Plan: Patient endorses history of hyperlipidemia Will resume home medications Lipid panel with a.m. labs (6) GERD (gastroesophageal reflux disease) QualifierTitle: Esophagitis presence: without esophagitis Qualified Code( s): K21.9 - Gastro-esophageal reflux disease without esophagitis Is this a current diagnosis for this admission?: Yes Plan: Patient endorses history of GERD Continue PPI - Time Time Spent with patient: 15-24 minutes Medications reviewed and adjusted accordingly: Yes Anticipated discharge: Home - Inpatient Certification Based on my medical assessment, after consideration of the patient's comorbidities, presenting symptoms, or acuity I expect that the services needed warrant INPATIENT care.: Yes I certify that my determination is in accordance with my understanding of Medicare's requirements for reasonable and necessary INPATIENT services [42 CFR 412.3e].: Yes Medical Necessity: Risk of Complication if Not Cared For in Hospital - Plan Summary Plan Summary: HEMATOLOGY CONSULTED. INITIATE SCHEDULED SOLUMEDROL. TRANSFUSE ONLY IF HEMODYNAMICALLY UNSTABLE. <NICOLAS INTERIANO M - Last Filed: 12/02/17 18:26> Subjective Reason For Visit: SYNCOPE,ANEMIA Physical Exam Vital Signs: Temp Pulse Resp BP Pulse Ox 98.1 F 84 20 122/64 99 11/24/17 10:37 11/24/17 10:37 11/24/17 10:37 11/24/17 10:37 11/24/17 10:22 Results Laboratory Results: 11/24/17 04:28 11/24/17 04:28 11/20/17 11/20/17 11/20/17 17:15 17:15 17:15 Creatine Kinase 40 CK-MB (CK-2) < 0.22 Troponin I < 0.012 NT-Pro-B Natriuret Pep 311 11/20/17 11/20/17 11/21/17 22:05 22:05 04:21 Creatine Kinase 38 48 CK-MB (CK-2) < 0.22 Troponin I < 0.012 NT-Pro-B Natriuret Pep 11/21/17 11/21/17 04:21 04:21 Creatine Kinase CK-MB (CK-2) < 0.22 Troponin I < 0.012 NT-Pro-B Natriuret Pep 832 Impressions: Chest X-Ray 11/20/17 10:55 IMPRESSION: NO ACUTE RADIOGRAPHIC FINDING IN THE CHEST. Head CT 11/20/17 10:58 IMPRESSION: NORMAL BRAIN CT WITHOUT CONTRAST. EVIDENCE OF ACUTE STROKE: NO. Abdomen/Pelvis CT 11/20/17 12:18 IMPRESSION: Increased density in the gallbladder neck which could represent biliary sludge or tiny gallstones. Enlarged fibroid uterus. Multiple colonic diverticula are identified without CT evidence for diverticulitis. Other findings as noted above Provider Note Provider Note: I have discussed this patient with MAU Marmolejo. I am in agreement with her evaluation and plan.
[2017-11-22] MEDS: METHYLPREDNISOLONE INJ 40 MG/1 ML SDV IV SCH ×3 (02:21→17:18)
[2017-11-22 06:08] LABS: HEMATOCRIT 17.8 % (36.0-47.0); MEAN CORPUSCULAR HEMOGLOBIN 28.4 pg (27.0-33.4); MEAN CORPUSCULAR HGB CONC 35.3 g/dL (32.0-36.0); MEAN CORPUSCULAR VOLUME 81 fl (80-97); PLATELET COUNT 153 10^3/uL (150-450); RED BLOOD COUNT 2.21 10^6/uL (3.72-5.28); RED CELL DISTRIBUTION WIDTH 21.7 % (11.5-14.0); WHITE BLOOD COUNT 15.4 10^3/uL (4.0-10.5)
[2017-11-22 06:10] LABS: HEMOGLOBIN 6.3 g/dL (12.0-15.5)
[2017-11-22 06:19] LABS: ANION GAP 9 (5-19); BLOOD UREA NITROGEN 15 mg/dL (7-20); CALCIUM 8.2 mg/dL (8.4-10.2); CARBON DIOXIDE 26 mmol/L (22-30); CHLORIDE 107 mmol/L (98-107); GLUCOSE 177 mg/dL (75-110); PHOSPHORUS 3.3 mg/dL (2.5-4.5); POTASSIUM 4.2 mmol/L (3.6-5.0); SODIUM 142.1 mmol/L (137-145)
[2017-11-22] MEDS: CYCLOBENZAPRINE HCL 10 MG TABLET PO PRN ×2 (07:49→19:41)
[2017-11-22] MEDS: ONDANSETRON 4 MG TAB.RAPDIS PO PRN (07:50)
[2017-11-22] MEDS: LIDOCAINE 5% (700 MG) TRANSDERMAL ADH..PATCH TP SCH (09:41)
[2017-11-22] MEDS: LANSOPRAZOLE 30 MG TAB.RAP.DR PO SCH ×2 (09:42→17:18)
--- NOTE | 2017-11-22 12:01 | PDOC PROGRESS REPORT ---
<KETTYSONIA Ambrocio - Last Filed: 11/22/17 11:49> Subjective Progress Note for:: 11/22/17 Subjective:: AURORA OROZCO is a 67 year old female with a PMH includes HLD, chronic back pain and sinusitis, admitted to [facility] for symptomatic anemia. The patient was seen this morning on rounds, she states she feels somewhat better today. She is able to ambulate to the restroom without difficulty, she denies dizziness or ataxia when walking. She still endorses lower back pain but states the flexeril has helped ease her symptoms. Upon assessment, the patient is resting comfortably in bed on room air. Her skin is pallor, sclera are pale, mucous membranes are pale but moist. Lungs clear to auscultation. S1S2. Palpable pulses in upper and lower extremities. Abdomen is soft, NT/ND. (+) BS. The patient's Hgb remains low this morning, dropping from 6.9 yesterday to 6.3 today. Per Hematology recommendations, continue to trend CBC and only transfuse if patient becomes hemodynamically unstable. Reason For Visit: SYNCOPE,ANEMIA Physical Exam Vital Signs: Temp Pulse Resp BP Pulse Ox 98.9 F 77 18 113/50 L 98 11/22/17 07:48 11/22/17 07:48 11/22/17 07:48 11/22/17 07:48 11/22/17 07:48 Intake & Output 11/21/17 11/22/17 11/23/17 06:59 06:59 06:59 Intake Total 300 474 Output Total 600 Balance -300 474 Weight 63.4 kg 63 kg General appearance: PRESENT: no acute distress, well-developed, well-nourished Head exam: PRESENT: atraumatic Eye exam: PRESENT: conjunctiva pale, PERRLA Mouth exam: PRESENT: moist Neck exam: PRESENT: full ROM Respiratory exam: PRESENT: clear to auscultation randell, symmetrical, unlabored Cardiovascular exam: PRESENT: RRR, +S1, +S2 Pulses: PRESENT: normal radial pulses, normal dorsalis pedis pul Vascular exam: PRESENT: pallor GI/Abdominal exam: PRESENT: normal bowel sounds, soft. ABSENT: distended, tenderness Rectal exam: PRESENT: deferred Extremities exam: PRESENT: full ROM. ABSENT: joint swelling, pedal edema Musculoskeletal exam: PRESENT: ambulatory, full ROM Neurological exam: PRESENT: alert, awake, oriented to person, oriented to place , oriented to time, oriented to situation Psychiatric exam: PRESENT: appropriate affect Skin exam: PRESENT: dry, intact, pallor, warm Results Laboratory Results: 11/22/17 04:33 11/22/17 04:33 11/21/17 11/21/17 11/22/17 09:47 17:00 04:33 WBC 10.5 15.4 H RBC 2.40 L 2.21 L Hgb 6.7 L 6.3 L Hct 19.3 L 17.8 L MCV 81 81 MCH 28.0 28.4 MCHC 34.8 35.3 RDW 21.2 H 21.7 H Plt Count 183 153 Seg Neutrophils % 75.1 Lymphocytes % 17.5 Monocytes % 6.6 Eosinophils % 0.0 Basophils % 0.8 Absolute Neutrophils 7.9 Absolute Lymphocytes 1.8 Absolute Monocytes 0.7 Absolute Eosinophils 0.0 Absolute Basophils 0.1 Sodium Potassium Chloride Carbon Dioxide Anion Gap BUN Creatinine Est GFR ( Amer) Est GFR (Non-Af Amer) Glucose Calcium Phosphorus Magnesium Antibody Screen TNP 11/22/17 04:33 WBC RBC Hgb Hct MCV MCH MCHC RDW Plt Count Seg Neutrophils % Lymphocytes % Monocytes % Eosinophils % Basophils % Absolute Neutrophils Absolute Lymphocytes Absolute Monocytes Absolute Eosinophils Absolute Basophils Sodium 142.1 Potassium 4.2 Chloride 107 Carbon Dioxide 26 Anion Gap 9 BUN 15 Creatinine 0.48 L Est GFR ( Amer) > 60 Est GFR (Non-Af Amer) > 60 Glucose 177 H Calcium 8.2 L Phosphorus 3.3 Magnesium 2.0 Antibody Screen 11/20/17 11/20/17 11/20/17 17:15 17:15 17:15 Creatine Kinase 40 CK-MB (CK-2) < 0.22 Troponin I < 0.012 NT-Pro-B Natriuret Pep 311 11/20/17 11/20/17 11/21/17 22:05 22:05 04:21 Creatine Kinase 38 48 CK-MB (CK-2) < 0.22 Troponin I < 0.012 NT-Pro-B Natriuret Pep 11/21/17 11/21/17 04:21 04:21 Creatine Kinase CK-MB (CK-2) < 0.22 Troponin I < 0.012 NT-Pro-B Natriuret Pep 832 Impressions: Chest X-Ray 11/20/17 10:55 IMPRESSION: NO ACUTE RADIOGRAPHIC FINDING IN THE CHEST. Head CT 11/20/17 10:58 IMPRESSION: NORMAL BRAIN CT WITHOUT CONTRAST. EVIDENCE OF ACUTE STROKE: NO. Abdomen/Pelvis CT 11/20/17 12:18 IMPRESSION: Increased density in the gallbladder neck which could represent biliary sludge or tiny gallstones. Enlarged fibroid uterus. Multiple colonic diverticula are identified without CT evidence for diverticulitis. Other findings as noted above Status: Imported from PACS Assessment & Plan - Diagnosis (1) Hemolytic anemia Is this a current diagnosis for this admission?: Yes Plan: Based on lab work, patient's symptoms are likely related to hemolytic anemia Unclear etiology at this time - drug induced vs. autoimmune process Hematology consulted, appreciate their recommendations Solumedrol 60mg q6hr IV Continue to monitor daily CBCs No need for transfusion at this time, despite Hgb < 7.0 - if patient becomes unstable plan to transfuse (2) Symptomatic anemia Is this a current diagnosis for this admission?: Yes Plan: Etiology appears to be hemolytic anemia Patient denies hematological history but endorses 'months of feeling tired and weak' Lab work from D in May 2017 is normal Stool guiac negative (-) CT Abd/pelvis demonstrates biliary sludge versus tiny gallstones, enlarged fibroid uterus, multiple colonic diverticula, no other pathology Initial Hgb 5.8 - transfuse 2U PRBC in ED Anemia studies completed: elevated LDH and reticulocyte count Hematology consulted, plan as above (3) Syncope QualifierTitle: Syncope type: unspecified Qualified Code(s): R55 - Syncope and collapse Is this a current diagnosis for this admission?: Yes Plan: Unwitnessed syncopal episode. (+) LOC and head trauma Could be secondary to hypotension stemming from significant anemia (Hgb 5.8) Head CT negative Received 1L IVF in ED Transfused 2U PRBC in ED Echocardiogram completed - LVEF 65%, no significant abnormalities Anemia studies completed, see above No plan for carotid dopplers at this time (4) Chronic back pain QualifierTitle: Back pain location: low back pain Sciatica presence: with sciatica Is this a current diagnosis for this admission?: Yes Plan: Patient endorses history of chronic lower back pain Patient taking Voltaren (NSAID) as needed - DO NOT plan to continue this considering anemia diagnosis PRN Tylenol, flexeril, and lidocaine patch for pain (5) HLD (hyperlipidemia) Is this a current diagnosis for this admission?: Yes Plan: Patient endorses history of hyperlipidemia Will resume home medications (6) GERD (gastroesophageal reflux disease) QualifierTitle: Esophagitis presence: without esophagitis Qualified Code( s): K21.9 - Gastro-esophageal reflux disease without esophagitis Is this a current diagnosis for this admission?: Yes Plan: Patient endorses history of GERD Continue bid LANSOPRAZOLE - Time Time Spent with patient: 15-24 minutes Medications reviewed and adjusted accordingly: Yes Anticipated discharge: Home - Inpatient Certification Based on my medical assessment, after consideration of the patient's comorbidities, presenting symptoms, or acuity I expect that the services needed warrant INPATIENT care.: Yes I certify that my determination is in accordance with my understanding of Medicare's requirements for reasonable and necessary INPATIENT services [42 CFR 412.3e].: Yes Medical Necessity: Risk of Complication if Not Cared For in Hospital - Plan Summary Plan Summary: CONTINUE STEROIDS Q6H. HGB REMAINS LOW (6.3). TRANSFUSE IF VS UNSTABLE. MONITOR FOR BLEEDING. HEMATOLOGY CONSULTED, APPRECIATE THEIR RECOMMENDATIONS. <NICOLAS INTERIANO M - Last Filed: 12/02/17 18:27> Subjective Reason For Visit: SYNCOPE,ANEMIA Physical Exam Vital Signs: Temp Pulse Resp BP Pulse Ox 98.1 F 84 20 122/64 99 11/24/17 10:37 11/24/17 10:37 11/24/17 10:37 11/24/17 10:37 11/24/17 10:22 Results Laboratory Results: 11/24/17 04:28 11/24/17 04:28 11/20/17 11/20/17 11/20/17 17:15 17:15 17:15 Creatine Kinase 40 CK-MB (CK-2) < 0.22 Troponin I < 0.012 NT-Pro-B Natriuret Pep 311 11/20/17 11/20/17 11/21/17 22:05 22:05 04:21 Creatine Kinase 38 48 CK-MB (CK-2) < 0.22 Troponin I < 0.012 NT-Pro-B Natriuret Pep 11/21/17 11/21/17 04:21 04:21 Creatine Kinase CK-MB (CK-2) < 0.22 Troponin I < 0.012 NT-Pro-B Natriuret Pep 832 Impressions: Chest X-Ray 11/20/17 10:55 IMPRESSION: NO ACUTE RADIOGRAPHIC FINDING IN THE CHEST. Head CT 11/20/17 10:58 IMPRESSION: NORMAL BRAIN CT WITHOUT CONTRAST. EVIDENCE OF ACUTE STROKE: NO. Abdomen/Pelvis CT 11/20/17 12:18 IMPRESSION: Increased density in the gallbladder neck which could represent biliary sludge or tiny gallstones. Enlarged fibroid uterus. Multiple colonic diverticula are identified without CT evidence for diverticulitis. Other findings as noted above Provider Note Provider Note: I have discussed this patient with MAU Marmolejo. I am in agreement with her evaluation and plan.
--- NOTE | 2017-11-22 13:14 | PDOC PROGRESS REPORT ---
Subjective Progress Note for:: 11/22/17 Subjective:: Patient states that she is feeling a little stronger today, but she was still quite short of breath after going to the bathroom. Her appetite is returning a little. ROS: She denies headache, nausea, pain, cough. Reason For Visit: SYNCOPE,ANEMIA Physical Exam Vital Signs: Temp Pulse Resp BP Pulse Ox 98.5 F 81 18 102/48 L 97 11/22/17 12:04 11/22/17 12:04 11/22/17 12:04 11/22/17 12:04 11/22/17 12:04 Intake & Output 11/21/17 11/22/17 11/23/17 06:59 06:59 06:59 Intake Total 300 474 150 Output Total 600 Balance -300 474 150 Weight 63.4 kg 63 kg General appearance: PRESENT: no acute distress Head exam: PRESENT: normocephalic Respiratory exam: PRESENT: clear to auscultation randell, unlabored Cardiovascular exam: PRESENT: RRR Extremities exam: ABSENT: pedal edema Neurological exam: PRESENT: alert, awake, oriented to person, oriented to place , oriented to time, oriented to situation Psychiatric exam: PRESENT: appropriate affect Skin exam: PRESENT: pallor Results Laboratory Results: 11/22/17 04:33 11/22/17 04:33 11/21/17 11/21/17 11/22/17 09:47 17:00 04:33 WBC 10.5 15.4 H RBC 2.40 L 2.21 L Hgb 6.7 L 6.3 L Hct 19.3 L 17.8 L MCV 81 81 MCH 28.0 28.4 MCHC 34.8 35.3 RDW 21.2 H 21.7 H Plt Count 183 153 Seg Neutrophils % 75.1 Lymphocytes % 17.5 Monocytes % 6.6 Eosinophils % 0.0 Basophils % 0.8 Absolute Neutrophils 7.9 Absolute Lymphocytes 1.8 Absolute Monocytes 0.7 Absolute Eosinophils 0.0 Absolute Basophils 0.1 Sodium Potassium Chloride Carbon Dioxide Anion Gap BUN Creatinine Est GFR ( Amer) Est GFR (Non-Af Amer) Glucose Calcium Phosphorus Magnesium Antibody Screen TNP 11/22/17 04:33 WBC RBC Hgb Hct MCV MCH MCHC RDW Plt Count Seg Neutrophils % Lymphocytes % Monocytes % Eosinophils % Basophils % Absolute Neutrophils Absolute Lymphocytes Absolute Monocytes Absolute Eosinophils Absolute Basophils Sodium 142.1 Potassium 4.2 Chloride 107 Carbon Dioxide 26 Anion Gap 9 BUN 15 Creatinine 0.48 L Est GFR ( Amer) > 60 Est GFR (Non-Af Amer) > 60 Glucose 177 H Calcium 8.2 L Phosphorus 3.3 Magnesium 2.0 Antibody Screen 11/20/17 11/20/17 11/20/17 17:15 17:15 17:15 Creatine Kinase 40 CK-MB (CK-2) < 0.22 Troponin I < 0.012 NT-Pro-B Natriuret Pep 311 11/20/17 11/20/17 11/21/17 22:05 22:05 04:21 Creatine Kinase 38 48 CK-MB (CK-2) < 0.22 Troponin I < 0.012 NT-Pro-B Natriuret Pep 11/21/17 11/21/17 04:21 04:21 Creatine Kinase CK-MB (CK-2) < 0.22 Troponin I < 0.012 NT-Pro-B Natriuret Pep 832 Impressions: Chest X-Ray 11/20/17 10:55 IMPRESSION: NO ACUTE RADIOGRAPHIC FINDING IN THE CHEST. Head CT 11/20/17 10:58 IMPRESSION: NORMAL BRAIN CT WITHOUT CONTRAST. EVIDENCE OF ACUTE STROKE: NO. Abdomen/Pelvis CT 11/20/17 12:18 IMPRESSION: Increased density in the gallbladder neck which could represent biliary sludge or tiny gallstones. Enlarged fibroid uterus. Multiple colonic diverticula are identified without CT evidence for diverticulitis. Other findings as noted above Assessment & Plan - Diagnosis (1) Symptomatic anemia Is this a current diagnosis for this admission?: Yes Plan: CARLOS+ Hemolytic anemia. Her HGB has been stable. Transfusions are not recommended at this time due to the autoimmune antibody. Will continue steroids for another 24 hours. If no improvement in her LDH or HGB, then I will add IVIg. (2) Syncope Qualifiers: Syncope type: unspecified Qualified Code(s): R55 - Syncope and collapse Is this a current diagnosis for this admission?: Yes Plan: Most likely due to hypotension from the anemia. BP now stable. - Plan Summary Plan Summary: I will continue to follow her with you. Please call with any concerns.
[2017-11-22] MEDS: ESCITALOPRAM OXALATE 10 MG TABLET PO SCH (21:26)
[2017-11-22] MEDS: SIMVASTATIN 10 MG TABLET PO SCH (21:28)
[2017-11-23] MEDS: METHYLPREDNISOLONE INJ 40 MG/1 ML SDV IV SCH ×3 (01:53→19:14)
[2017-11-23 05:59] LABS: MEAN CORPUSCULAR HEMOGLOBIN 28.2 pg (27.0-33.4); MEAN CORPUSCULAR HGB CONC 34.7 g/dL (32.0-36.0); MEAN CORPUSCULAR VOLUME 82 fl (80-97); PLATELET COUNT 149 10^3/uL (150-450); RED BLOOD COUNT 1.96 10^6/uL (3.72-5.28); RED CELL DISTRIBUTION WIDTH 22.2 % (11.5-14.0); WHITE BLOOD COUNT 18.5 10^3/uL (4.0-10.5)
[2017-11-23 06:29] LABS: ANION GAP 8 (5-19); BLOOD UREA NITROGEN 13 mg/dL (7-20); CARBON DIOXIDE 27 mmol/L (22-30); CHLORIDE 107 mmol/L (98-107); GLUCOSE 159 mg/dL (75-110); PHOSPHORUS 2.9 mg/dL (2.5-4.5); POTASSIUM 3.9 mmol/L (3.6-5.0)
[2017-11-23 06:48] LABS: HEMOGLOBIN 5.5 g/dL (12.0-15.5)
[2017-11-23] MEDS: LANSOPRAZOLE 30 MG TAB.RAP.DR PO SCH ×2 (09:43→19:16)
[2017-11-23] MEDS: EZETIMIBE 10 MG TABLET PO SCH (09:43)
[2017-11-23] MEDS: LIDOCAINE 5% (700 MG) TRANSDERMAL ADH..PATCH TP SCH (09:44)
[2017-11-23] MEDS: ENOXAPARIN SODIUM INJ 40 MG/0.4 ML DISP.SYRIN SUBCUT SCH (09:44)
[2017-11-23] MEDS: NORMAL SALINE 1000 ML 1,000 ML IV PRN (09:46)
[2017-11-23] MEDS ORDERED: [UNRECOGNIZED DRUG - OTHER] IV ONE (11:00)
[2017-11-23] MEDS ORDERED: IMMUNE GLOB GAM CAPRYLATE IV ONE (11:00)
[2017-11-23] MEDS: CYCLOBENZAPRINE HCL 10 MG TABLET PO PRN (16:31)
--- NOTE | 2017-11-23 16:43 | PDOC PROGRESS REPORT ---
<KETTYSONIA A - Last Filed: 11/23/17 16:35> Subjective Progress Note for:: 11/23/17 Subjective:: AURORA OROZCO is a 67 year old female with a PMH includes HLD, chronic back pain and sinusitis, admitted to [facility] for symptomatic anemia. The patient was seen this morning on rounds, she states she feels worse today. She states she feels tired, weak and depressed. She is, however, able to ambulate to the restroom without difficulty, she denies dizziness or ataxia when walking. Upon assessment, the patient is resting comfortably in bed on room air. Her skin is pallor, sclera are pale, mucous membranes are pale but moist. Lungs clear to auscultation. S1S2. Palpable pulses in upper and lower extremities. Abdomen is soft, NT/ND. (+) BS. The patient's Hgb remains low this morning, dropping from 6.3 yesterday to 5.5 today. Per Hematology recommendations, plan for IVIG today, continue to trend CBC and only transfuse PRBCs if patient becomes hemodynamically unstable. If post-IVIG CBC demonstrates a drop in platelets or Hgb, plan to transfer to tertiary hospital for plasmaphoresis. Reason For Visit: SYNCOPE,ANEMIA Physical Exam Vital Signs: Temp Pulse Resp BP Pulse Ox 98.6 F 72 16 113/50 L 99 11/23/17 15:31 11/23/17 15:31 11/23/17 15:31 11/23/17 15:31 11/23/17 15:31 Intake & Output 11/22/17 11/23/17 11/24/17 06:59 06:59 06:59 Intake Total 1474 350 285 Balance 1474 350 285 Weight 63 kg 65.9 kg General appearance: PRESENT: no acute distress, well-developed, well-nourished Head exam: PRESENT: atraumatic Eye exam: PRESENT: conjunctiva pale, PERRLA Mouth exam: PRESENT: moist, tongue midline Neck exam: PRESENT: full ROM, JVD Respiratory exam: PRESENT: clear to auscultation randell, symmetrical, unlabored Cardiovascular exam: PRESENT: RRR, +S1, +S2, systolic murmur Pulses: PRESENT: normal radial pulses, normal dorsalis pedis pul GI/Abdominal exam: PRESENT: normal bowel sounds, soft. ABSENT: tenderness Rectal exam: PRESENT: deferred Extremities exam: PRESENT: full ROM Musculoskeletal exam: PRESENT: ambulatory, full ROM Neurological exam: PRESENT: alert, awake, oriented to person, oriented to place , oriented to time, oriented to situation Psychiatric exam: PRESENT: appropriate affect Skin exam: PRESENT: dry, intact, pallor, warm Results Laboratory Results: 11/23/17 04:42 11/23/17 04:42 11/23/17 11/23/17 04:42 04:42 WBC 18.5 H RBC 1.96 L Hgb 5.5 L Hct 16.0 L MCV 82 MCH 28.2 MCHC 34.7 RDW 22.2 H Plt Count 149 L Sodium 142.0 Potassium 3.9 Chloride 107 Carbon Dioxide 27 Anion Gap 8 BUN 13 Creatinine 0.46 L Est GFR ( Amer) > 60 Est GFR (Non-Af Amer) > 60 Glucose 159 H Calcium 8.0 L Phosphorus 2.9 Magnesium 2.0 11/20/17 11/20/17 11/20/17 17:15 17:15 17:15 Creatine Kinase 40 CK-MB (CK-2) < 0.22 Troponin I < 0.012 NT-Pro-B Natriuret Pep 311 11/20/17 11/20/17 11/21/17 22:05 22:05 04:21 Creatine Kinase 38 48 CK-MB (CK-2) < 0.22 Troponin I < 0.012 NT-Pro-B Natriuret Pep 11/21/17 11/21/17 04:21 04:21 Creatine Kinase CK-MB (CK-2) < 0.22 Troponin I < 0.012 NT-Pro-B Natriuret Pep 832 Impressions: Chest X-Ray 11/20/17 10:55 IMPRESSION: NO ACUTE RADIOGRAPHIC FINDING IN THE CHEST. Head CT 11/20/17 10:58 IMPRESSION: NORMAL BRAIN CT WITHOUT CONTRAST. EVIDENCE OF ACUTE STROKE: NO. Abdomen/Pelvis CT 11/20/17 12:18 IMPRESSION: Increased density in the gallbladder neck which could represent biliary sludge or tiny gallstones. Enlarged fibroid uterus. Multiple colonic diverticula are identified without CT evidence for diverticulitis. Other findings as noted above Status: Imported from PACS Assessment & Plan - Diagnosis (1) Hemolytic anemia Is this a current diagnosis for this admission?: Yes Plan: Based on lab work, patient's symptoms are likely related to hemolytic anemia Etiology appears to be an autoimmune process Hematology consulted, appreciate their recommendations Continue scheduled IV Solu-Medrol Continue to monitor daily CBCs No need or transfusion at this time, despite Hgb < 7.0 - if patient becomes unstable plan to transfuse Hgb decreased to 5.5 today Plan for IVIG infusion If Hgb and/or platelets have not improved following infusion, consider transfer to tertiary hospital for plasmapheresis If Hgb and/or platelets have improved following infusion, will keep patient at [facility] (2) Symptomatic anemia Is this a current diagnosis for this admission?: Yes Plan: Etiology is hemolytic anemia Patient denies hematological history but endorses 'months of feeling tired and weak' Lab work from D in May 2017 is normal Stool guiac negative (-) CT Abd/pelvis demonstrates biliary sludge versus tiny gallstones, enlarged fibroid uterus, multiple colonic diverticula, no other pathology Initial Hgb 5.8 - transfuse 2U PRBC in ED Anemia studies completed: elevated LDH and reticulocyte count Hematology consulted, plan as above (3) Syncope QualifierTitle: Syncope type: unspecified Qualified Code(s): R55 - Syncope and collapse Is this a current diagnosis for this admission?: Yes Plan: Unwitnessed syncopal episode. (+) LOC and head trauma Could be secondary to hypotension stemming from significant anemia (Initial Hgb 5.8) Head CT negative Received 1L IVF in ED Transfused 2U PRBC in ED Echocardiogram completed - LVEF 65%, no significant abnormalities Anemia studies completed, see above No plan for carotid dopplers at this time (4) Chronic back pain QualifierTitle: Back pain location: low back pain Sciatica presence: with sciatica Is this a current diagnosis for this admission?: Yes Plan: Patient endorses history of chronic lower back pain Patient taking Voltaren (NSAID) as needed - DO NOT plan to continue this considering anemia diagnosis PRN Tylenol, flexeril, and lidocaine patch for pain (5) HLD (hyperlipidemia) Is this a current diagnosis for this admission?: Yes Plan: Patient endorses history of hyperlipidemia Will resume home medications (6) GERD (gastroesophageal reflux disease) QualifierTitle: Esophagitis presence: without esophagitis Qualified Code( s): K21.9 - Gastro-esophageal reflux disease without esophagitis Is this a current diagnosis for this admission?: Yes Plan: Patient endorses history of GERD Continue bid LANSOPRAZOLE - Time Time Spent with patient: 15-24 minutes Medications reviewed and adjusted accordingly: Yes - Inpatient Certification Based on my medical assessment, after consideration of the patient's comorbidities, presenting symptoms, or acuity I expect that the services needed warrant INPATIENT care.: Yes I certify that my determination is in accordance with my understanding of Medicare's requirements for reasonable and necessary INPATIENT services [42 CFR 412.3e].: Yes Medical Necessity: Risk of Complication if Not Cared For in Hospital - Plan Summary Plan Summary: CONTINUE IV STEROIDS. IVIG TODAY. CHECK POST-INFUSION CBC, IF NOT IMPROVING PLAN TO TRANSFER TO [facility] FOR PLAMAPHORESIS. <NICOLAS INTERIANO M - Last Filed: 12/02/17 18:28> Subjective Reason For Visit: SYNCOPE,ANEMIA Physical Exam Vital Signs: Temp Pulse Resp BP Pulse Ox 98.1 F 84 20 122/64 99 11/24/17 10:37 11/24/17 10:37 11/24/17 10:37 11/24/17 10:37 11/24/17 10:22 Results Laboratory Results: 11/24/17 04:28 11/24/17 04:28 11/20/17 11/20/17 11/20/17 17:15 17:15 17:15 Creatine Kinase 40 CK-MB (CK-2) < 0.22 Troponin I < 0.012 NT-Pro-B Natriuret Pep 311 11/20/17 11/20/17 11/21/17 22:05 22:05 04:21 Creatine Kinase 38 48 CK-MB (CK-2) < 0.22 Troponin I < 0.012 NT-Pro-B Natriuret Pep 11/21/17 11/21/17 04:21 04:21 Creatine Kinase CK-MB (CK-2) < 0.22 Troponin I < 0.012 NT-Pro-B Natriuret Pep 832 Impressions: Chest X-Ray 11/20/17 10:55 IMPRESSION: NO ACUTE RADIOGRAPHIC FINDING IN THE CHEST. Head CT 11/20/17 10:58 IMPRESSION: NORMAL BRAIN CT WITHOUT CONTRAST. EVIDENCE OF ACUTE STROKE: NO. Abdomen/Pelvis CT 11/20/17 12:18 IMPRESSION: Increased density in the gallbladder neck which could represent biliary sludge or tiny gallstones. Enlarged fibroid uterus. Multiple colonic diverticula are identified without CT evidence for diverticulitis. Other findings as noted above Provider Note Provider Note: I have discussed this patient with MAU Marmolejo. I am in agreement with her evaluation and plan.
[2017-11-23 17:01] LABS: HEMATOCRIT 16.2 % (36.0-47.0); MEAN CORPUSCULAR HEMOGLOBIN 28.3 pg (27.0-33.4); MEAN CORPUSCULAR HGB CONC 34.6 g/dL (32.0-36.0); MEAN CORPUSCULAR VOLUME 82 fl (80-97); PLATELET COUNT 170 10^3/uL (150-450); RED BLOOD COUNT 1.98 10^6/uL (3.72-5.28); RED CELL DISTRIBUTION WIDTH 21.8 % (11.5-14.0); WHITE BLOOD COUNT 22.2 10^3/uL (4.0-10.5)
[2017-11-23 17:28] LABS: HEMOGLOBIN 5.6 g/dL (12.0-15.5)
[2017-11-23] MEDS: SIMVASTATIN 10 MG TABLET PO SCH (21:13)
[2017-11-23] MEDS: ESCITALOPRAM OXALATE 10 MG TABLET PO SCH (21:15)
[2017-11-23 21:19] LABS: HEMATOCRIT 16.3 % (36.0-47.0); MEAN CORPUSCULAR HEMOGLOBIN 28.3 pg (27.0-33.4); MEAN CORPUSCULAR HGB CONC 33.9 g/dL (32.0-36.0); MEAN CORPUSCULAR VOLUME 84 fl (80-97); PLATELET COUNT 177 10^3/uL (150-450); RED BLOOD COUNT 1.94 10^6/uL (3.72-5.28); RED CELL DISTRIBUTION WIDTH 22.2 % (11.5-14.0); WHITE BLOOD COUNT 18.7 10^3/uL (4.0-10.5)
[2017-11-23 21:47] LABS: HEMOGLOBIN 5.5 g/dL (12.0-15.5)
[2017-11-23] MEDS: ACETAMINOPHEN 325 MG TABLET PO PRN (23:42)
[2017-11-24] MEDS: METHYLPREDNISOLONE INJ 40 MG/1 ML SDV IV SCH ×2 (03:49→09:13)
[2017-11-24 05:21] LABS: HEMATOCRIT 15.4 % (36.0-47.0); MEAN CORPUSCULAR HGB CONC 33.7 g/dL (32.0-36.0); MEAN CORPUSCULAR VOLUME 83 fl (80-97); PLATELET COUNT 175 10^3/uL (150-450); RED BLOOD COUNT 1.85 10^6/uL (3.72-5.28); RED CELL DISTRIBUTION WIDTH 22.5 % (11.5-14.0)
[2017-11-24 05:35] LABS: ANION GAP 9 (5-19); BLOOD UREA NITROGEN 14 mg/dL (7-20); CALCIUM 7.8 mg/dL (8.4-10.2); CARBON DIOXIDE 27 mmol/L (22-30); CHLORIDE 107 mmol/L (98-107); GLUCOSE 145 mg/dL (75-110); PHOSPHORUS 3.9 mg/dL (2.5-4.5); POTASSIUM 3.6 mmol/L (3.6-5.0); SODIUM 142.5 mmol/L (137-145)
[2017-11-24 06:16] LABS: HEMOGLOBIN 5.2 g/dL (12.0-15.5); WHITE BLOOD COUNT 18.8 10^3/uL (4.0-10.5)
[2017-11-24] MEDS ORDERED: NORMAL SALINE 250 ML IV PRN (06:21)
--- NOTE | 2017-11-24 08:09 | PDOC PROGRESS REPORT ---
Subjective Progress Note for:: 11/24/17 Subjective:: Pt states that she is still tired. No new symptoms. She feels a bit better. Her breathing has improved. She is able to eat. She is using zofran for nausea. ROS: Some constipation. Mild Dyspnea on exertion. Some mild headaches. Reason For Visit: SYNCOPE,ANEMIA Physical Exam Vital Signs: Temp Pulse Resp BP Pulse Ox 98.6 F 104 H 20 102/61 96 11/24/17 03:50 11/24/17 07:00 11/24/17 03:50 11/24/17 03:50 11/24/17 03:50 Intake & Output 11/23/17 11/24/17 11/25/17 06:59 06:59 06:59 Intake Total 350 1535 Balance 350 1535 Weight 65.9 kg 67.1 kg General appearance: PRESENT: no acute distress, well-developed, well-nourished Head exam: PRESENT: normocephalic Mouth exam: PRESENT: moist Respiratory exam: PRESENT: unlabored GI/Abdominal exam: PRESENT: soft. ABSENT: tenderness Extremities exam: ABSENT: pedal edema Neurological exam: PRESENT: alert, awake. ABSENT: motor sensory deficit Psychiatric exam: PRESENT: appropriate affect Skin exam: PRESENT: pallor Results Laboratory Results: 11/24/17 04:28 11/24/17 04:28 11/21/17 11/23/17 11/23/17 09:47 16:24 20:45 WBC 22.2 H 18.7 H RBC 1.98 L 1.94 L Hgb 5.6 L 5.5 L Hct 16.2 L 16.3 L MCV 82 84 MCH 28.3 28.3 MCHC 34.6 33.9 RDW 21.8 H 22.2 H Plt Count 170 177 Sodium Potassium Chloride Carbon Dioxide Anion Gap BUN Creatinine Est GFR ( Amer) Est GFR (Non-Af Amer) Glucose Calcium Phosphorus Magnesium Antibody Screen TNP 11/24/17 11/24/17 04:28 04:28 WBC 18.8 H RBC 1.85 L Hgb 5.2 L Hct 15.4 L MCV 83 MCH 28.0 MCHC 33.7 RDW 22.5 H Plt Count 175 Sodium 142.5 Potassium 3.6 Chloride 107 Carbon Dioxide 27 Anion Gap 9 BUN 14 Creatinine 0.48 L Est GFR ( Amer) > 60 Est GFR (Non-Af Amer) > 60 Glucose 145 H Calcium 7.8 L Phosphorus 3.9 Magnesium 1.9 Antibody Screen 11/20/17 11/20/17 11/20/17 17:15 17:15 17:15 Creatine Kinase 40 CK-MB (CK-2) < 0.22 Troponin I < 0.012 NT-Pro-B Natriuret Pep 311 11/20/17 11/20/17 11/21/17 22:05 22:05 04:21 Creatine Kinase 38 48 CK-MB (CK-2) < 0.22 Troponin I < 0.012 NT-Pro-B Natriuret Pep 11/21/17 11/21/17 04:21 04:21 Creatine Kinase CK-MB (CK-2) < 0.22 Troponin I < 0.012 NT-Pro-B Natriuret Pep 832 Impressions: Chest X-Ray 11/20/17 10:55 IMPRESSION: NO ACUTE RADIOGRAPHIC FINDING IN THE CHEST. Head CT 11/20/17 10:58 IMPRESSION: NORMAL BRAIN CT WITHOUT CONTRAST. EVIDENCE OF ACUTE STROKE: NO. Abdomen/Pelvis CT 11/20/17 12:18 IMPRESSION: Increased density in the gallbladder neck which could represent biliary sludge or tiny gallstones. Enlarged fibroid uterus. Multiple colonic diverticula are identified without CT evidence for diverticulitis. Other findings as noted above Assessment & Plan - Diagnosis (1) Symptomatic anemia Is this a current diagnosis for this admission?: Yes Plan: CARLOS+ Hemolytic anemia. No active infection has been found. Her LDH is only slightly elevated. She has received steroids and IVIg, but thus far, no response. I believe she will need plasma exchange. She will need to be transferred to [facility] for this procedure. I have spoken with Dr. Marmolejo about this. She will try to arrange. I have discussed risks/benefits of further blood transfusions with pathology and hospitalist. We will try to transfuse 1 unit prior to transfer, as her pulse has increased, and she had a low-grade temp today. Patient and family aware of situation. All questions were answered to the best of my ability. (2) Syncope Qualifiers: Syncope type: unspecified Qualified Code(s): R55 - Syncope and collapse Is this a current diagnosis for this admission?: Yes
[2017-11-24] MEDS: NORMAL SALINE 1000 ML 1,000 ML IV PRN (09:11)
[2017-11-24] MEDS: EZETIMIBE 10 MG TABLET PO SCH (09:13)
[2017-11-24] MEDS: LANSOPRAZOLE 30 MG TAB.RAP.DR PO SCH (09:13)
[2017-11-24] MEDS: ENOXAPARIN SODIUM INJ 40 MG/0.4 ML DISP.SYRIN SUBCUT SCH (09:14)
[2017-11-24] MEDS: ACETAMINOPHEN 325 MG TABLET PO PRN (10:22)
[2017-11-24] MEDS: CYCLOBENZAPRINE HCL 10 MG TABLET PO PRN (10:22)
--- NOTE | 2017-11-24 10:22 | PDOC TRANSFER SUMMARY ---
<SONIA HDEZ - Last Filed: 11/24/17 10:15> General Admission Date/PCP: 11/20/17 14:27 Admission Date: 11/20/17 Transfer Date: 11/24/17 Accepting Facility: [facility] Accepting Physician: DR. ANA MARÍA WEAVER Resuscitation Status: Full Code - Transfer Diagnosis (1) Hemolytic anemia Is this a current diagnosis for this admission?: Yes (2) Symptomatic anemia Is this a current diagnosis for this admission?: Yes (3) Syncope Is this a current diagnosis for this admission?: Yes (4) Chronic back pain Is this a current diagnosis for this admission?: Yes (5) HLD (hyperlipidemia) Is this a current diagnosis for this admission?: Yes (6) GERD (gastroesophageal reflux disease) Is this a current diagnosis for this admission?: Yes - Transfer Medications Home Medications: Aspirin [Aspirin EC] 81 mg PO DAILY 11/20/17 Diclofenac Sodium [Voltaren-Xr] 100 mg PO DAILYP PRN 11/20/17 Escitalopram Oxalate [Lexapro] 20 mg PO DAILY 11/20/17 Esomeprazole Magnesium [Nexium] 40 mg PO DAILY 11/20/17 Ezetimibe/Simvastatin [Vytorin 10-20 mg Tablet] 1 tab PO DAILY 11/20/17 Transfer Medications: Current Medications Acetaminophen (Tylenol 325 Mg Tablet) 975 mg PO Q6HP PRN PRN Reason: FOR PAIN OR TEMP Stop: 12/21/17 09:40 Last Admin: 11/23/17 23:42 Dose: 975 mg Cyclobenzaprine HCl (Flexeril 10 Mg Tablet) 10 mg PO Q8HP PRN PRN Reason: Muscle Spasms or back pain Stop: 12/21/17 09:41 Last Admin: 11/23/17 16:31 Dose: 10 mg Ezetimibe (Zetia 10 Mg Tablet) 10 mg PO DAILY VERONICA Stop: 12/23/17 09:59 Last Admin: 11/24/17 09:13 Dose: Not Given Enoxaparin Sodium (Lovenox Inj 40 Mg/0.4 Ml Disp.Syrin) 40 mg SUBCUT DAILY VERONICA Stop: 12/23/17 09:59 Last Admin: 11/24/17 09:14 Dose: 40 mg Escitalopram Oxalate (Lexapro 10 Mg Tablet) 20 mg PO QHS VERONICA Stop: 12/21/17 21:59 Last Admin: 11/23/17 21:15 Dose: 20 mg Sodium Chloride (Nacl 0.9% 1000 Ml Iv Soln) 1,000 mls @ 75 mls/hr IV CONTINUOUS PRN PRN Reason: THIS MED IS NOT "PRN" Stop: 12/21/17 09:41 Last Admin: 11/24/17 09:11 Dose: 75 mls/hr Immune Globulin 60 gm/ Immune Globulin 5 gm/ Miscellaneous Information 650 mls @ 0 mls/hr IV ROMEO@1200 ONE PRN Reason: As Directed Stop: 11/24/17 12:01 Sodium Chloride (Nacl 0.9% 250 Ml Iv Soln) 250 mls @ 0 mls/hr IV CONTINUOUS PRN ; As Directed PRN Reason: AFTER EACH UNIT Stop: 11/25/17 06:20 Lansoprazole (Prevacid 30 Mg Odt Tablet) 30 mg PO BID VERONICA Stop: 12/21/17 09:59 Last Admin: 11/24/17 09:13 Dose: 30 mg Lidocaine (Lidoderm 5% (700 Mg) Transdermal Patch) 1 patch TP DAILY VERONICA Stop: 12/21/17 09:59 Last Admin: 11/23/17 09:44 Dose: 1 patch Methylprednisolone Sodium Succinate (Solu-Medrol Inj/Pf 40 Mg/1 Ml Sdv) 60 mg IV Q8A VERONICA Stop: 12/21/17 09:59 Last Admin: 11/24/17 09:13 Dose: 60 mg Ondansetron HCl (Zofran Odt 4 Mg Tablet) 4 mg PO Q6HP PRN PRN Reason: FOR NAUSEA/VOMITING Stop: 12/20/17 14:29 Last Admin: 11/22/17 07:50 Dose: 4 mg Simvastatin (Zocor 10 Mg Tablet) 20 mg PO QHS VERONICA Stop: 12/22/17 21:59 Last Admin: 11/23/17 21:13 Dose: Not Given - Allergies Allergies/Adverse Reactions: diphenhydramine [From Benadryl] Allergy (Verified 11/20/17 10:46) Hospital Course Hospital Course: H&P 11/20/2017: AURORA OROZCO is a 67 year old female who presented to the emergency department following an unwitnessed syncopal episode at home. PMH includes HLD , chronic back pain and sinusitis. The patient experienced a syncopal episode this morning at approximately 10:15 AM. Daughter was in the next room and heard a crash, walked into the bathroom to find patient laying unconscious on the ground. No seizure-like activity. According to daughter, patient was unconscious for approximately 1 minute. When the patient came to, she immediately vomited and experienced 2 episodes of loose stool shortly thereafter. The patient is amnesic to the event, states she was brushing her teeth and 'the next thing I knew, I woke up on the floor with my daughter standing over me.' This episode prompted the daughter to call EMS, and patient was transported to [facility]. Upon arrival to the ED, vital signs were BP 102/52 HR 87 RR 24 T 97.9 SPO2 100% on RA. The patient was awake, alert and oriented 3. Head CT negative. CXR benign. EKG demonstrates NSR, T-wave inversion in V1, no evidence of acute ischemia or infarction. Significant lab work includes leukocytosis (WBC 18.1), anemia (Hgb 5.9/Hct 17.2). Guiac negative (-). All other lab work, including cardiac enzymes, was benign. CT Abd/pelvis demonstrates biliary sludge versus tiny gallstones, enlarged fibroid uterus, multiple colonic diverticula, no other pathology. For her anemia, the patient was transfused 2 units PRBCs. She also received 1L IVF bolus. Upon evaluation, the patient complains of mild nausea and extreme fatigue and weakness. The patient states she has been experiencing these symptoms of fatigue for 'months.' Occupation is retired RN. Denies smoking, ETOH, or illicit drug use. Patient states she is been undergoing a comprehensive workup by her primary care doctor (Dr. Will Mcgee in [place], [place]) but all tests have been normal. In addition to her fatigue, the patient is complaining of lower back pain, which she states is a chronic problem for her. The patient appears very pale, her oral mucosa and sclera are pale. Palpable pulses in upper and lower extremities. No evidence of peripheral edema. S1S1. (+) JVD. Lungs are clear to auscultation. (+) BS. Abdomen is soft, nontender, nondistended. Plan to admit to hospitalist service for syncope and anemia workup. HOSPITAL COURSE: ECHOcardiogram was done to complete syncope workup. Results demonstrated LVEF 65 %, Mild MR and . Based on anemia studies, patient's symptoms were determined to likely be related to hemolytic anemia: elevated reticulocyte count, elevated LDH and elevated bilirubin. Hematology was consulted. According to Dr. Hernandez, the etiology appears to be an autoimmune process (CARLOS+). The patient is not taking any medications that account would for her presentation. Despite her leukocytosis, there is no identifiable source of infection - UA negative, CXR benign, the patient was afebrile and nontoxic appearing. The patient was started on IV Solumedrol 60mg q6hr upon admission. Her Hgb, unfortunately, did not respond. On 11/23/2017 the patient received a transfusion of IVIG. The post- transfusion CBC showed no improvement. Morning laboratory studies from 2017 indicate a further drop in Hgb (5.2). Discussed with Dr. Hernandez ( [facility]) and the decision was made to transfer the patient to a tertiary center that offers plasmaphoresis. Additionally, we plan to transfuse the patient 1U PRBC since her pulse rate has elevated to 104 (baseline 70-85bpm) and the patient had a low grade fever (99.6F) overnight. Dr. Ana María Weaver, Hospitalist at [facility] has graciously accepted the patient. Physical Exam Vital Signs: Temp Pulse Resp BP Pulse Ox 98.6 F 80 16 121/63 96 11/24/17 07:28 11/24/17 07:28 11/24/17 07:28 11/24/17 07:28 11/24/17 07:28 Intake & Output 11/23/17 11/24/17 11/25/17 06:59 06:59 06:59 Intake Total 350 2368 Balance 350 2368 Weight 65.9 kg 67.1 kg General appearance: PRESENT: well-developed, well-nourished Eye exam: PRESENT: conjunctiva pale, PERRLA Mouth exam: PRESENT: moist, neck supple, tongue midline Neck exam: PRESENT: JVD Respiratory exam: PRESENT: clear to auscultation randell, symmetrical, unlabored Cardiovascular exam: PRESENT: RRR, +S1, +S2, systolic murmur - history of MR Pulses: PRESENT: normal radial pulses, normal dorsalis pedis pul Vascular exam: PRESENT: pallor GI/Abdominal exam: PRESENT: normal bowel sounds, soft. ABSENT: distended, tenderness Rectal exam: PRESENT: deferred Extremities exam: PRESENT: full ROM Musculoskeletal exam: PRESENT: ambulatory, full ROM Neurological exam: PRESENT: alert, awake, oriented to person, oriented to place , oriented to time, oriented to situation Psychiatric exam: PRESENT: appropriate affect Skin exam: PRESENT: dry, intact, pallor, warm Results Laboratory Results: 11/24/17 04:28 11/24/17 04:28 11/21/17 11/23/17 11/23/17 09:47 16:24 20:45 WBC 22.2 H 18.7 H RBC 1.98 L 1.94 L Hgb 5.6 L 5.5 L Hct 16.2 L 16.3 L MCV 82 84 MCH 28.3 28.3 MCHC 34.6 33.9 RDW 21.8 H 22.2 H Plt Count 170 177 Sodium Potassium Chloride Carbon Dioxide Anion Gap BUN Creatinine Est GFR ( Amer) Est GFR (Non-Af Amer) Glucose Calcium Phosphorus Magnesium Antibody Screen TNP 11/24/17 11/24/17 04:28 04:28 WBC 18.8 H RBC 1.85 L Hgb 5.2 L Hct 15.4 L MCV 83 MCH 28.0 MCHC 33.7 RDW 22.5 H Plt Count 175 Sodium 142.5 Potassium 3.6 Chloride 107 Carbon Dioxide 27 Anion Gap 9 BUN 14 Creatinine 0.48 L Est GFR ( Amer) > 60 Est GFR (Non-Af Amer) > 60 Glucose 145 H Calcium 7.8 L Phosphorus 3.9 Magnesium 1.9 Antibody Screen 11/20/17 11/20/17 11/20/17 17:15 17:15 17:15 Creatine Kinase 40 CK-MB (CK-2) < 0.22 Troponin I < 0.012 NT-Pro-B Natriuret Pep 311 11/20/17 11/20/17 11/21/17 22:05 22:05 04:21 Creatine Kinase 38 48 CK-MB (CK-2) < 0.22 Troponin I < 0.012 NT-Pro-B Natriuret Pep 11/21/17 11/21/17 04:21 04:21 Creatine Kinase CK-MB (CK-2) < 0.22 Troponin I < 0.012 NT-Pro-B Natriuret Pep 832 Impressions: Chest X-Ray 11/20/17 10:55 IMPRESSION: NO ACUTE RADIOGRAPHIC FINDING IN THE CHEST. Head CT 11/20/17 10:58 IMPRESSION: NORMAL BRAIN CT WITHOUT CONTRAST. EVIDENCE OF ACUTE STROKE: NO. Abdomen/Pelvis CT 11/20/17 12:18 IMPRESSION: Increased density in the gallbladder neck which could represent biliary sludge or tiny gallstones. Enlarged fibroid uterus. Multiple colonic diverticula are identified without CT evidence for diverticulitis. Other findings as noted above Status: Imported from PACS Plan Discharge Plan: TRANSFER TO [facility] FOR PLASMAPHORESIS Time Spent: Less than 30 Minutes <NICOLAS INTERIANO M - Last Filed: 12/02/17 18:32> General Admission Date/PCP: 11/20/17 14:27 Physical Exam Vital Signs: Temp Pulse Resp BP Pulse Ox 98.1 F 84 20 122/64 99 11/24/17 10:37 11/24/17 10:37 11/24/17 10:37 11/24/17 10:37 11/24/17 10:22 Results Laboratory Results: 11/24/17 04:28 11/24/17 04:28 11/20/17 11/20/17 11/20/17 17:15 17:15 17:15 Creatine Kinase 40 CK-MB (CK-2) < 0.22 Troponin I < 0.012 NT-Pro-B Natriuret Pep 311 11/20/17 11/20/17 11/21/17 22:05 22:05 04:21 Creatine Kinase 38 48 CK-MB (CK-2) < 0.22 Troponin I < 0.012 NT-Pro-B Natriuret Pep 11/21/17 11/21/17 04:21 04:21 Creatine Kinase CK-MB (CK-2) < 0.22 Troponin I < 0.012 NT-Pro-B Natriuret Pep 832 Impressions: Chest X-Ray 11/20/17 10:55 IMPRESSION: NO ACUTE RADIOGRAPHIC FINDING IN THE CHEST. Head CT 11/20/17 10:58 IMPRESSION: NORMAL BRAIN CT WITHOUT CONTRAST. EVIDENCE OF ACUTE STROKE: NO. Abdomen/Pelvis CT 11/20/17 12:18 IMPRESSION: Increased density in the gallbladder neck which could represent biliary sludge or tiny gallstones. Enlarged fibroid uterus. Multiple colonic diverticula are identified without CT evidence for diverticulitis. Other findings as noted above Provider Note Provider Note: I have discussed this patient with MAU Hdez. I am in agreement with her evaluation and plan.
[2017-11-24 10:40] VITALS: BP 122/64
[2017-11-24] MEDS: LIDOCAINE 5% (700 MG) TRANSDERMAL ADH..PATCH TP SCH (10:52)
[2017-11-24] MEDS ORDERED: IMMUNE GLOB GAM CAPRYLATE IV ONE (12:00)
[2017-11-24] MEDS ORDERED: [UNRECOGNIZED DRUG - OTHER] IV ONE (12:00)
== END 2017-11-24 11:11 | disposition short-term general hospital (02) | DRG 810 ==
LOC: ER 10:44 → EH 14:27 → 3N 20:00
PROVIDERS: ADMIT Internal Medicine; ATTEND Internal Medicine
PROC: 30233N1 Transfusion of Nonautologous Red Blood Cells into Peripheral Vein, Percutaneous Approach (ICD-10-PCS; principal; 2017-11-20)
PROC: 30233N1 Transfusion of Nonautologous Red Blood Cells into Peripheral Vein, Percutaneous Approach (ICD-10-PCS; 2017-11-24)
DX: D59.9 Acquired hemolytic anemia, unspecified (principal); G89.29 Other chronic pain; R55 Syncope and collapse; M54.40 Lumbago with sciatica, unspecified side; E78.5 Hyperlipidemia, unspecified; K21.9 Gastro-esophageal reflux disease without esophagitis; J32.9 Chronic sinusitis, unspecified; K80.80 Other cholelithiasis without obstruction; K83.8 Other specified diseases of biliary tract; D25.9 Leiomyoma of uterus, unspecified; K59.00 Constipation, unspecified; Z91.81 History of falling; Z88.8 Allergy status to other drugs, medicaments and biological substances
CPT/HCPCS: 36415; 36430; 70450; 71045; 74177; 80048; 80053; 80061; 81001; 82272; 82550; 82553; 82607; 82728; 82746; 83010; 83036; 83516; 83540; 83550; 83605; 83615; 83690; 83735; 83880; 84100; 84443; 84484; 85025; 85027; 85045; 85610; 86850; 86870; 86880; 86900; 86901; 86920; 86922; 93005; 93010; 93306; 96360; 96361; 99285; J1561; J1650; J2405; J2920; J3490; J7030; P9016; S0119